=== PATIENT | male | born 1990 | race Caucasian/White ===

== ENCOUNTER 2023-03-06 11:10 | Emergency (ER) | payer BC, SELFPAY ==
[2023-03-06 11:24] VITALS: BP 136/85; PULSE 59; RESP 16; TEMP 36.2; O2SAT 100
--- NOTE | 2023-03-06 11:37 | CRLHL7_ITS ---
For Patients: As a result of the Century Cures Act, medical imaging exams and procedure reports are released immediately into your electronic medical record. You may view this report before your referring provider. If you have questions, please contact your health care provider. Indication: Left testicular pain. Technique: Ultrasound of the scrotum and contents. Sonographic medina-scale images were obtained with spectral and color Doppler waveform and spectral waveform analysis of the testicles. Comparison: 04/18/2019. Findings: Bother testicles are normal in size and echotexture. No masses. No suspicious calcifications. Arterial and venous color Doppler blood flow and spectral waveforms are present in both testicles. Epididymis: Unremarkable bilaterally. Normal blood flow. Other: Moderate-sized left hydrocele. No sign of varicocele. Scrotal wall is normal. Impression: Left-sided hydrocele present is of uncertain etiology. Remainder the exam is unremarkable. No sign of torsion or inflammation. Dictated by Tristin Benedict MD @ 03/06/2023 1:27:54 PM (Electronically Signed)
--- NOTE | 2023-03-06 13:23 | ED.MALEGU ---
HPI - Male Genitourinary General Time Seen by Provider: 13:23 Date Seen: 03/06/23 Chief complaint: Urogenital Problems, Male Stated complaint: Testicular pain Time Seen by Provider: 03/06/23 13:13 Source: patient and RN notes reviewed Mode of arrival: ambulatory Limitations: no limitations History of Present Illness HPI Narrative: Patient is a 32-year-old male coming in with left testicular pain. He admits it has probably been there for at least months, feels like it is worsening at times. There is always a low level discomfort, sometimes will feel best if he is sitting. He has not taken any Tylenol or ibuprofen today, does not feeling needs any. There has been no fevers, no urinary symptoms. No concern for STIs. There is no acute trauma to this testicle, does not feel any mass but seems like it hurts along the back side. 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 Denies any penile discharge. MD Complaint: testicle pain Related Data Previous Rx's Medication Instructions Recorded paroxetine HCl 20 mg tablet (Paxil) 20 mg PO QDAY 30 days #30 tabs 10/09/22 Allergies Allergy/AdvReac Type Severity Reaction Status Date / Time No Known Drug Allergies Allergy Verified 10/09/22 07:47 Review of Systems Narrative: As per HPI. 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 CV regular rate and rhythm no murmur abdomen is soft, no rebound or guarding no organomegaly. No inguinal adenopathy. Normal circumcised penis without any penile drainage or lesions. Testes are descended bilaterally. The testicles themselves are not tender. The left testicle is more tender superiorly along the aspect of the base of the cord and may have a little fullness feeling to it, maybe has a little bit of epididymal tenderness but is not significantly enlarged. Right testicle epididymis and spermatic cord seem normal. Documenting provider has reviewed patient's vital signs: yes Course Course Hospital Course: Reviewed with patient that I wonder more about hydrocele or varicocele, feels more like a hydrocele to me but is smaller. We need to await Radiology over read of this ultrasound, hopefully should be soon. He is not provide a urinalysis but given his physical examination, am not thinking that this is absolutely necessary. Reevaluation(s) Time of Reevaluation #1: 13:54 Reevaluation #1: Have reviewed ultrasound with patient and provided him a copy of report to take to his primary. This showing hydrocele. Did review this condition, benign nature and course of management. Ultimately he should see Urology. Vital Signs Vital signs: Initial Vital Signs Temperature 97.2 F L 03/06/23 11:24 Temperature Source Temporal Artery Scan 03/06/23 11:24 Pulse Rate 59 L 03/06/23 11:24 Pulse Rhythm Regular 03/06/23 11:24 Respiratory Rate 16 03/06/23 11:24 Blood Pressure 136/85 03/06/23 11:24 Blood Pressure Mean 102 03/06/23 11:24 Blood Pressure Position Sitting 03/06/23 11:24 Pulse Oximetry 100 03/06/23 11:24 Oxygen Delivery Method Room Air 03/06/23 11:24 Vital Signs Temperature 97.2 F L 03/06/23 11:24 Pulse Rate 59 L 03/06/23 11:24 Respiratory Rate 16 03/06/23 11:24 Blood Pressure 136/85 03/06/23 11:24 Pulse Oximetry 100 03/06/23 11:24 Oxygen Delivery Method Room Air 03/06/23 11:24 Temperature 97.2 F L 03/06/23 11:24 Pulse Rate 59 L 03/06/23 11:24 Respiratory Rate 16 03/06/23 11:24 Blood Pressure 136/85 03/06/23 11:24 Pulse Oximetry 100 03/06/23 11:24 Oxygen Delivery Method Room Air 03/06/23 11:24 MDM - Male Genitourinary Imaging Data US scrotum: Attestation: I have reviewed the pertinent imaging results. Radiologist's impression: Patient: BRIA GRAY Facility:?[facility] Patient ID:?[id number] Site Patient ID:?[id number]. Site :?1990 Study:?US Testicle -03/06/2023 12:20:36 PM Ordering Physician:?Meena Garcia Final Report: Indication: Left testicular pain. Technique: Ultrasound of the scrotum and contents. Sonographic medina-scale images were obtained with spectral and color Doppler waveform and spectral waveform analysis of the testicles. Comparison: 04/18/2019. Findings: Bother testicles are normal in size and echotexture. No masses. No suspicious calcifications. Arterial and venous color Doppler blood flow and spectral waveforms are present in both testicles. Epididymis: Unremarkable bilaterally. Normal blood flow. Other: Moderate-sized left hydrocele. No sign of varicocele. Scrotal wall is normal. Impression: Left-sided hydrocele present is of uncertain etiology. Remainder the exam is unremarkable. No sign of torsion or inflammation. Dictated by Tristin Benedict MD @ 03/06/2023 1:27:54 PM (Electronic Signature) Discharge Plan Discharge Clinical Impression: Hydrocele Patient Disposition: Home, Self-Care Condition: Stable Instructions: Hydrocele (ED) Additional Instructions: Supportive underwear, Tylenol and ibuprofen per bottle directions. Ultimately, need to be referred to Urology which you can get the referral through your primary care provider. This is a benign finding but can be symptomatic for you. Activity Level: Activity as Tolerated Prescriptions: No Action paroxetine HCl [Paxil] 20 mg tablet 20 mg PO QDAY 30 Days Qty: 30 1RF Follow Up/Referrals: Nallely Arreguin, ONLINE PUBLISHER, EMAIL CAMPAIGN MANAGER [Primary Care Provider] - Stand Alone Forms: [facility] Info Instructions
--- OUTSIDE RECORDS SUMMARY | 2023-03-06 13:39 | XMS_ITS | Continuity of Care Document ---
Author Name Unknown Organization [facility] Address [address] [place] [address] Phone Care Team Providers Care Apprentice Instrument Technician Name Role Phone Darrin Hayden MD Unavailable Unavailable Allergies, Adverse Reactions, Alerts Substance Reaction Status Criticality No Known Allergies Active No Inform ation Medications Medication Instructions Dosage Effective Dates (start - stop) Status Comments oxycodone 5 mg tablet take 1 - 2 Tablet by oral route every 6 - 8 hours as needed for pain 5 MG - No Longer Active Procedures Procedure Date Postop Followup Visit Re-do Lami/Discectomy, Lumbar HNP - PA D Re-do Lami/Discectomy, Lumbar HNP Office/Outpatient Visit,Est, Mod 2019 Office/Outpatient Visit,New, Mod 2019 Advance Directives Directive Yes / No Effective Date File Name No Information Encounters Encounter Description Practice Location Reason(s) For Visit Diagnoses Date Provider Providers Copied on Encounter [facility], [address], [place], [place], [id number] , [place] tel:[phone] [facility] Specialty [place] Encounter for other specified surgical aftercare 1 Catracho Clifford. [facility], [address], [address], [place], [place], [id number] , [place]. tel:[phone] Referring Provider: Chelsea Gee, [address], [address]. tel:[phone] [facility], [address], [facility] [place], [place], [id number] , [place] tel: [phone] [facility] No Information 0 Panvica Chato. [facility], [address], [address], [place], [place], [id number] , [place]. tel: [phone] [facility], [address], [facility] [place], [place], [id number] , [place] tel: [phone] [facility] No Information 0 Panvica Chato. [facility] [place], [address] [place] [address], [address], [place], [place], [address] , [place]. tel: [phone] [facility]: [facility] [address] [place], [address]. tel:[phone] [facility], [address], [place], [place], [id number] , [place] tel: [phone] [facility] No Information 0 Hayden Darrin. [facility] [place], [address] [place] [address], [address], [place], [place], [id number] , [place]. tel:[phone] Ref[facility]: [facility] [address] [place], [address]. [phone] Office/Outpat ient Visit,Est, Mod [facility], [address], [place], [place], [id number] , [place] tel: [phone] [facility] Other intervertebral disc displacement, lumbar regionRadiculop athy, lumbar region Nov- 0 Panvica Chato. [facility] [place], [address], [address], [place], [place], [id number] , [place]. [phone] Referring Provider: [facility] [address] [place], [address]. tel:[phone] Office/Outpat ient Visit,New, Mod [facility], [address], [place], [place], [id number] , [place] tel:[phone] [facility] Other intervertebral disc displacement, lumbar regionRadiculop athy, lumbar region 0 Shirin Reis. [facility], [address] [place] [address], [address], [place], [place], [id number] , [place]. [phone] Referring Provider: Chelsea Gee, [address], [address]. tel:[phone] Family History Family Member Type Diagnosis Age At Onset No Information Payers Payer name Insurance type Covered democrat ID Elis engel([place] [id number] [employer]/TPA [id number] Social History Type Description Quantity Date Captured Comments Alcohol Use Details Unknown Caffeine Use Details Unknown Tobacco Use Status Current non-smoker Smoking Status Never smoker Non-Smoking Tobacco Use Details : No Details Available : No Details Available Sex Male Vital Signs Date / Time: Height Weight BMI Pulse Rate Blood Pressure Temperature Respiratory Rate Body Surface Area Head Circumference Head Circ. Percentile Wt./Chuck. Percentile BMI percentile Pulse Ox Inhaled Ox 9:48 AM 66.50 in 72.121 kg (159.00 lbs) 25.2 8 kg/m eter (2) 98.60 F Chief Complaint And Reason For Visit No Information Reason For Referral Reason For Referral No Information History Of Present Illness Encounter Date Complaint History Of Prese nt Illness No Information Functional Status Date Functional Assessmen t No Information Instructions Date Instruction Additional Infor mation No Information Assessments Type Assessment Date No Information Patient Care Teams Name Effective Dates (start - stop) Status Members No Information
[2023-03-06 14:09] LABS: Appearance Urine Clear (Clear); Bilirubin Urine Negative (Negative); Blood Urine Negative (Negative); Color Urine Yellow (Yellow); Glucose Urine Negative (Negative); Ketones Urine Negative (Negative); Leukocyte Esterase Urine Negative (Negative); Nitrite Urine Negative (Negative); Protein Urine Negative (Negative); Urobilinogen Urine 0.2 (0.2-1.0)
[2023-03-06 14:37] LABS: RBC Urine 0-2 (0-2); WBC Urine 0-2 (0-5)
== END 2023-03-06 14:05 | disposition home or self-care (01) ==
PROVIDERS: Emergency Provider Family Medicine; PCP Nurse Practitioner Family
DX: N43.3 Hydrocele, unspecified (principal)
CPT/HCPCS: 76870; 81001; 93976; 99283; 99284

== ENCOUNTER 2023-07-09 04:32 | Emergency (ER) | payer BC, SELFPAY ==
[2023-07-09 04:38] VITALS: BP 160/94; PULSE 84; RESP 18; TEMP 36.8; O2SAT 99; BMI 25.1
--- NOTE | 2023-07-09 04:49 | PC.NURSE ---
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
--- NOTE | 2023-07-09 05:02 | CRLHL7_ITS ---
For Patients: As a result of the Century Cures Act, medical imaging exams and procedure reports are released immediately into your electronic medical record. You may view this report before your referring provider. If you have questions, please contact your health care provider. INDICATION: Chest pain COMPARISON: 03/02/2021 TECHNIQUE: PA and lateral 2 view chest radiograph. FINDINGS: The lungs are well expanded. No focal consolidations. No pulmonary edema. No pleural effusion. No pneumothorax. No pneumomediastinum. Normal cardiomediastinal silhouette. Bones: Normal for age. IMPRESSION: Lungs are clear. Normal chest radiographs. Dictated by Cailin Paz MD @ 07/09/2023 6:23:47 AM (Electronically Signed)
--- NOTE | 2023-07-09 05:25 | ED_ITS ---
HPI - General Adult General Chief complaint: Chest Pain Stated complaint: Chest pain Time Seen by Provider: 07/09/23 05:01 Source: patient Mode of arrival: ambulatory Limitations: no limitations History of Present Illness HPI narrative: 33-year-old male presents to the ED with chest pain for the past hour. Pain present upon awakening. He got up to go to the bathroom and realized his chest was achy. It is the anterior lower chest, near the insertion of the false ribs. No specific trauma or injury but did feel short of breath and had some tenderness yesterday at a wrestling meet when he was moving wrestling mats. For perspective, these are very heavy and cumbersome. No fever, no productive cough. No epigastric pain, emesis or nausea. He is having normal stools and normal appetite. No prior history of similar symptoms. No personal history of cardiac disease, DVT or PE. He has no family history of premature coronary artery disease or bleeding or blood clotting disorder. He does not smoke. He has no known history of hypertension or hyperlipidemia but admits he has not been to the physician in quite some time. He does have a history of anxiety and was prescribed Paxil for about a year. He reports that he stopped this a month ago cuts he had been feeling well and does not feel as though his symptoms are anxiety related. The chest pain is dull, achy and constant. On exam, a was a little worse for me when he leaned forward and took deep breaths. Did not try taking any aspirin or other interventions prior to coming to ED. Past medical history notable for anxiety. Only home med is Paxil. No allergies. Nonsmoker. ROS is notable for the chest symptoms as described above only, otherwise denies times 12 systems. 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 Social drinker 3/week Exercises three times per week - biking Smoking Status: Never smoker Do you use any of these nicotine containing products: None Second hand tobacco smoke exposure: No How often do you have a drink containing alcohol: monthly or less How many standard drinks containing alcohol do you have on a typical day: 1 or 2 How often do you have six or more drinks on one occasion: Never AUDIT-C Alcohol total score: 1 Non-prescribed substance use: denies use Little interest or pleasure in doing things: not at all Feeling down, depressed, or hopeless: more than half the days service: No Exam Const: Vital Signs, click to edit/add: Vital Signs - 24 hr 07/09/23 04:38 07/09/23 06:02 Temperature 98.3 F Pulse Rate [Pulse Oximeter] 84 56 L Respiratory Rate 18 16 Blood Pressure [Le ft Upper Arm] 160/94 H 119/58 L Pulse Oximetry 99 98 Oxygen Delivery Me thod Room Air Room Air Documenting provider has reviewed patient's vital signs: yes Common normals: no apparent distress, average body habitus and alert General appearance: well kempt HENMT: Common normals: normocephalic and head/scalp atraumatic Head and scalp: normocephalic and atraumatic Face and sinus: normal facial exam Mouth: oral and palatal mucosa normal Throat: posterior oropharynx normal Eye: Common normals: conjunctivae normal General eye: normal appearance of both eyes Conjunctiva: conjunctiva(e) normal Neck & C-Spine: Common normals: full ROM and no lymphadenopathy Chest: Common normals: inspection of chest normal and palpation of chest normal Resp: Common normals: normal respiratory effort, no use of accessory muscles and clear to auscultation bilaterally Effort & inspection: able to speak in complete sentences Auscultation: clear to auscultation bilaterally Cardio: Common normals: regular rate, regular rhythm, S1 normal heart sound, S2 normal heart sound and no murmurs Rate: regular rate Rhythm: regular rhythm Heart sounds: S1 normal and S2 normal GI: Common normals: Normal to inspection, nondistended, normoactive bowel sounds present, soft to palpation, non-tender, no hepatosplenomegaly and no masses Inspection: normal to inspection Palpation: soft and no hepatosplenomegaly Back & Pelvis: Common normals: thoracic and lumbar spine normal to inspection Extremity: Common normals: normal to inspection, full ROM and no pedal edema Neuro: Sensorium/orientation: alert Speech: speech normal Motor exam: no tremor noted and no movement abnormalities noted Psych: Common normals: thought process normal and speech normal Appearance: well kempt Attitude: engaged Activity/motor behavior: appropriate eye contact Speech: normal speech Thought process: normal thought process Insight: insight good Judgement: judgment good Skin: Common normals: no rashes or lesions noted General skin exam: no rashes or lesions noted Course Course ED Course: Lower anterior chest pain without any significant cardiac risk factors. Blood pressure is a little elevated. Recommend EKG, chest x-ray, basic labs and repea t troponin in 2 hours if initial is negative. Patient will be watched on quality assurance monitor final. No treatments recommended for initial management, await findings. Reevaluation(s) Time of Reevaluation #1: 06:36 Reevaluation #1: Counseled patient on initial results. Awaiting 2nd 2 hour troponin at 6:45 a.m. . Suspect this will be normal also. Suspect musculoskeletal etiology. Pressures have improved to the 1 teens over 70s. He is minimally symptomatic, no treatments have been given. Counseled patient that I would like for him to keep a symptom diary, Tylenol and ibuprofen as needed for pain. Alarm symptoms reviewed that would warrant repeat ED presentation. If he continues to have episodes, would recommend he see his primary care provider for a cardiac stress test. He verbalizes understanding and agreement of plan. Will be discharged home if 2nd troponin is negative. Time of Reevaluation #2: 06:53 Reevaluation #2: Second troponin also negative. Discharge instructions Vital Signs Vital signs: Initial Vital Signs Temperature 98.3 F 07/09/23 04:38 Temperature Source Temporal Artery Scan 07/09/23 04:38 Pulse Rate 84 07/09/23 04:38 Pulse Rhythm Regular 07/09/23 04:38 Respiratory Rate 18 07/09/23 04:38 Blood Pressure 160/94 H 07/09/23 04:38 Blood Pressure Mean 116 H 07/09/23 04:38 Pulse Oximetry 99 07/09/23 04:38 Oxygen Delivery Method Room Air 07/09/23 04:38 Vital Signs Temperature 98.3 F 07/09/23 04:38 Pulse Rate 84 07/09/23 04:38 Respiratory Rate 18 07/09/23 04:38 Blood Pressure 160/94 H 07/09/23 04:38 Pulse Oximetry 99 07/09/23 04:38 Oxygen Delivery Method Room Air 07/09/23 04:38 Temperature 98.3 F 07/09/23 04:38 Pulse Rate 56 L 07/09/23 06:02 Respiratory Rate 16 07/09/23 06:02 Blood Pressure 119/58 L 07/09/23 06:02 Pulse Oximetry 98 07/09/23 06:02 Oxygen Delivery Method Room Air 07/09/23 06:02 Medical Decision Making Lab Data Lab results reviewed: Yes I reviewed the patient's lab results Lab results narrative: All reassuring. Labs: Lab Results 07/09/23 07/09/23 Range/Units 04:45 05:02 WBC 6.18 (4.50-11.00) K/uL RBC 5.39 (4.30-5.90) m/uL Hgb 16.2 (13.5-17.5) gm/dL Hct 47.6 (37.0-53.0) % MCV 88 (80-100) fL MCH 30 (26-34) pg MCHC 34 (32-36) gm/dL RDW Coeff of Jennifer 11.8 (11.5-15.5) % Plt Count 208 (140-440) K/uL Neut % (Auto) 44.2 (42.0-72.0) % Lymph % (Auto) 45.5 H (20-44) % [place] % (Auto) 8.4 (0.0-11.0) % Eos % (Auto) 1.5 (0.0-7.0) % Baso % (Auto) 0.2 (0.0-3.0) % Neut # (Auto) 2.74 (1.7-7.0) K/uL Lymph # (Auto) 2.80 (0.90-2.90) K/uL [place] # (Auto) 0.50 (0.00-0.90) K/UL Eos # (Auto) 0.09 (0.00-0.50) K/uL Baso # (Auto) 0.01 (0.00-0.30) K/uL Abs Immat Gran (auto) 0.01 (0.00-0.30) K/uL Imm/Tot Granulo (auto) 0.2 % D-Dimer Quant (PE/DVT) < 0.27 (0.00-0.50) ug/ml Sodium 141 (135-149) mmol/L Potassium 3.9 (3.6-5.1) mmol/L Chloride 102 (96-114) mmol/L Carbon Dioxide 29 (20-32) mmol/L Anion Gap 10 (7-15) mEq/L BUN 20 (5-24) mg/dL Creatinine 1.0 (0.5-1.5) mg/dL Estimated Creat Clear 97.31 Estimated GFR 101 ml/min Glucose 103 (60-115) mg/dL Calcium 9.9 (8.4-10.6) mg/dL Total Bilirubin 1.2 (0.1-1.5) mg/dL AST 29 (12-35) U/L ALT 29 (4-50) U/L Alkaline Phosphatase 72 (40-150) U/L Troponin I < 0.01 L (0.01-0.04) ng/mL C-Reactive Protein 0.5 (0.5-1.0) mg/dL NT-Pro-B Natriuret Pep < 20 pg/mL Total Protein 8.1 (6.0-8.3) g/dL Albumin 5.2 H (3.3-5.0) g/dL POC Troponin I 0.00 L (0.01-0.04) ng/ml Imaging Data Chest x-ray: Attestation: I have reviewed the pertinent imaging results. My impression: Normal chest x-ray Radiologist's impression: IMPRESSION: Lungs are clear. Normal chest radiographs. Dictated by Cailin Paz MD @ 07/09/2023 6:23:47 AM ECG Data Attestation: I personally reviewed and interpreted this ECG as follows: Prior ECG tracings: not available for review Interpretation: Normal sinus rhythm, rate of 71. Normal axis and intervals. No ischemia, no significant ST or T-wave abnormalities. Discharge Plan Discharge Clinical Impression: Non-cardiac chest pain Patient Disposition: Home, Self-Care Condition: Stable Instructions: Chest Wall Pain (ED) Additional Instructions: As we discussed, I suspect that your pain is either from a pulled diaphragm muscle or strained cartilage of your lower ribs. This tends to improve over 7- 10 days. It is okay to use Tylenol 1000 mg every 6 hours and or ibuprofen 600 mg every 6 hours as needed for pain. You have no restrictions on your activities. But no that heavy lifting and or straining may worsen your pain. You have severe shortness of breath, heart palpitations or feel your symptoms are worsening, please come back to the emergency department. If her symptoms remain mild, keep a symptom diary. If they are persisting beyond the next 10 days, make a follow-up appointment with her primary care provider to further discuss and consider doing a cardiac stress test. Activity Level: No Restrictions Discharge Diet: Regular Prescriptions: No Action No Known Home Medications Follow Up/Referrals: Nallely Arreguin APRN, PYROTECHNICS PRESS TENDER [Primary Care Provider] - Stand Alone Forms: [email or web address] Info Instructions
[2023-07-09 05:46] LABS: Basophils Absolute Auto 0.01 K/uL (0.00-0.30); Basophils Percent Auto 0.2 % (0.0-3.0); Eosinophils Absolute Auto 0.09 K/uL (0.00-0.50); Eosinophils Percent Auto 1.5 % (0.0-7.0); Hematocrit 47.6 % (37.0-53.0); Hemoglobin* 16.2 gm/dL (13.5-17.5); Immature Granulocytes Abs Auto 0.01 K/uL (0.00-0.30); Immature Granulocytes Pct Auto 0.2 %; Lymphocytes Percent Auto 45.5 % (20-44); Mean Corpuscular HGB Conc 34 gm/dL (32-36); Mean Corpuscular Hemoglobin 30 pg (26-34); Mean Corpuscular Volume 88 fL (80-100); Monocytes Percent Auto 8.4 % (0.0-11.0); Neutrophils Absolute Auto 2.74 K/uL (1.7-7.0); Neutrophils Percent Auto 44.2 % (42.0-72.0); Platelet Count* 208 K/uL (140-440); RDW Coefficient of Variation % 11.8 % (11.5-15.5); Red Blood Count 5.39 m/uL (4.30-5.90); White Blood Count* 6.18 K/uL (4.50-11.00)
--- OUTSIDE RECORDS SUMMARY | 2023-07-09 05:48 | XMS_ITS | Continuity of Care Document ---
Author Name Unknown Organization [facility] Address [address] [place] [address] Phone Care Team Providers Care Vat Operator Name Role Phone Darrin Hayden MD Unavailable [...] Copied on Encounter [facility], [address], [place], [place], [id number] , [place] tel:[phone] [facility] [place] Encounter for other specified surgical aftercare 1 Catracho Clifford. [facility], [address], [address], [place], [place], [id number] , [place]. tel:[phone] Referring Provider: Chelsea Gee, [address], [address]. tel:[phone] [facility], [address], [facility], [place], [id number] , [place] tel: [phone] [facility] No Information 0 Panvica Chato. [facility], [address], [address], [place], [place], [id number] , [place]. tel: [phone] [facility], [address], [facility], [place], [id number] , [place] tel: [phone] [facility] No Information 0 Panvica Chato. [facility] [place], [address] [place] [address], [address], [place], [place], [id number] , [place]. tel: [phone] [facility]: [facility] [address] [place], [address]. tel:[phone] [facility], [address], [place], [place], [id number] , [place] tel: [phone] [facility] No Information 0 Hayden Darrin. [facility] [place], [address] [place] [address], [address], [place], [place], [id number] , [place]. tel:[phone] [facility]: [facility] [address] [place], [address]. [phone] Office/Outpat ient Visit,Est, Mod [facility], [address], [place], [place], [id number] , [place] tel: [phone] [facility] Other intervertebral disc displacement, lumbar regionRadiculop athy, lumbar region Nov- 0 Panvica Chato. [facility] [place], [address], [address], [place], [place], [address] , [place]. [phone] Ref[facility]: [facility] [address] [place], [address]. tel:[phone] Office/Outpat ient Visit,New, Mod [facility], [address], [place], [place], [id number] , [place] tel:[phone] [facility] Other intervertebral disc displacement, lumbar regionRadiculop athy, lumbar region 0 Shirin Reis. [facility], [address] [place] [address], [address], [place], [place], [id number] , [place]. [phone] Referring Provider: Chelsea Gee, [address], [address]. tel:[phone] Family History Family Member Type Diagnosis Age At Onset No Information Payers Payer name Insurance type Covered democrat ID Elis engel([place]) [place] [id number] CCS/TPA [id number] Social History Type Description Quantity Date Captured [...]
[2023-07-09 05:52] LABS: Slide Review Reflex No
[2023-07-09 06:01] LABS: Albumin* 5.2 g/dL (3.3-5.0); Chloride* 102 mmol/L (96-114); Sodium* 141 mmol/L (135-149)
[2023-07-09 06:02] VITALS: BP 119/58; PULSE 56; RESP 16; O2SAT 98
[2023-07-09 06:02] LABS: Potassium* 3.9 mmol/L (3.6-5.1)
[2023-07-09 06:03] LABS: Est. Creatinine Clearance* 97.31; Estimated Glomerular Filt Rate 101 ml/min
[2023-07-09 06:04] LABS: Alkaline Phosphatase* 72 U/L (40-150); Anion Gap 10 mEq/L (7-15); Aspartate Amino Transferase* 29 U/L (12-35); Bilirubin Total* 1.2 mg/dL (0.1-1.5); Carbon Dioxide* 29 mmol/L (20-32); Total Protein* 8.1 g/dL (6.0-8.3)
[2023-07-09 06:05] LABS: Alanine Aminotransferase* 29 U/L (4-50); Blood Urea Nitrogen* 20 mg/dL (5-24); Calcium* 9.9 mg/dL (8.4-10.6); Glucose* 103 mg/dL (60-115)
[2023-07-09 06:06] LABS: D Dimer Quantitative* < 0.27 ug/ml (0.00-0.50)
[2023-07-09 06:07] LABS: C Reactive Protein* 0.5 mg/dL (0.5-1.0)
[2023-07-09 06:13] LABS: NT Pro B Type NatriureticPept* < 20 pg/mL
[2023-07-09 06:16] LABS: Troponin I* < 0.01 ng/mL (0.01-0.04)
[2023-07-09 07:02] VITALS: BP 118/72; PULSE 50; RESP 16; TEMP 36.7; O2SAT 98
== END 2023-07-09 07:02 | disposition home or self-care (01) ==
PROVIDERS: Emergency Provider Family Medicine; PCP Nurse Practitioner Family
DX: R07.89 Other chest pain (principal)
CPT/HCPCS: 36415; 71046; 80053; 83880; 84484; 85025; 85379; 86140; 99284

== ENCOUNTER 2023-07-17 15:48 | Outpatient (CLI) | payer BC, SELFPAY | END 2023-07-17 15:49 | disposition home or self-care (01) | PROVIDERS: PCP Nurse Practitioner Family; Visit Provider Nurse Practitioner Family | DX: R07.89 Other chest pain (principal); Z13.220 Encounter for screening for lipoid disorders | CPT/HCPCS: 80061; 84484; 85025; 85651; 86140 ==

== ENCOUNTER 2023-07-27 05:37 | Emergency (ER) | payer BC, SELFPAY ==
[2023-07-27] VITALS (11 sets, daily range): BP systolic 136–152; BP diastolic 87–99; PULSE 46–61; RESP 16–18; TEMP 36.7; O2SAT 96–98; BMI 25.1
--- NOTE | 2023-07-27 05:57 | CRLHL7_ITS ---
For Patients: As a result of the Century Cures Act, medical imaging exams and procedure reports are released immediately into your electronic medical record. You may view this report before your referring provider. If you have questions, please contact your health care provider. INDICATION: Head injury. Right-sided weakness and neck pain. TECHNIQUE: CT head without contrast. COMPARISON: None. FINDINGS: CSF spaces: Within normal limits for age. Brain parenchyma and extra-axial spaces: The medina-white differentiation is normal. No sign of mass, hemorrhage, or midline shift. No extra-axial fluid collection. Skull base and calvarium: Opacified left maxillary sinus. The visualized orbits are grossly unremarkable. No skull fractures. IMPRESSION: Unremarkable head CT except for opacification of the left maxillary sinus. No signs of acute injury. Please note that all CT scans at this facility use dose modulation, iterative reconstruction, and/or weight-based dosing when appropriate to reduce radiation dose to as low as reasonably achievable. Dictated by Tristin Benedict MD @ 07/27/2023 6:44:12 AM (Electronically Signed)
--- NOTE | 2023-07-27 05:57 | CRLHL7_ITS ---
For Patients: As a result of the Century Cures Act, medical imaging exams and procedure reports are released immediately into your electronic medical record. You may view this report before your referring provider. If you have questions, please contact your health care provider. INDICATION: Trauma, fall with neck pain. TECHNIQUE: CT cervical spine without contrast. COMPARISON: None. FINDINGS: Vertebrae: Alignment is normal. There are no fractures or suspicious bony lesions. Discs and facet joints: Disc spaces and facets are within normal limits. Extraspinal findings: Prevertebral soft tissues, visualized airway, and visualized lungs are unremarkable. IMPRESSION: Unremarkable cervical spine CT. Please note that all CT scans at this facility use dose modulation, iterative reconstruction, and/or weight-based dosing when appropriate to reduce radiation dose to as low as reasonably achievable. Dictated by Tristin Benedict MD @ 07/27/2023 6:49:30 AM (Electronically Signed)
--- NOTE | 2023-07-27 06:00 | ED.GENADULT ---
HPI - General Adult General Chief complaint: Fall/Minor Trauma Stated complaint: possible concussion Time Seen by Provider: 07/27/23 05:45 Source: patient and family History of Present Illness HPI narrative: 33-year-old male fell down the stairs in his home 1 hour prior to arrival. heard the fall and attended to him quickly. This was a very large flight of stairs, could have been up to 20 steps. Patient remembers falling but is quite fuzzy on the details. reports that she heard the fall, that he fell forward going down the stairs. He seemed to land on all fours but she cannot be sure and he crawled a few feet into the next room. He is complaining of headache, neck pain and some paresthesias on his right side. He is not answering questions fully appropriately per his . He is placed in a C-collar right away and the TTA is called. He does not take any anticoagulants. He has not taken any medication for pain. Pain worse with movement, accompanied by some photophobia. No fevers or recent injury, no intoxication or alcohol use. This was a typical morning for them, getting up and getting ready for work. No prior history of severe head injuries. Past medical history benign, no major long-term health problems. No allergies, no long-term medications, nonsmoker. ROS notable for the neurological and musculoskeletal symptoms as above on initial survey, otherwise denies times 12 systems. 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 Social drinker 3/week Exercises three times per week - biking Smoking Status: Never smoker Do you use any of these nicotine containing products: None Second hand tobacco smoke exposure: No How often do you have a drink containing alcohol: monthly or less How many standard drinks containing alcohol do you have on a typical day: 1 or 2 How often do you have six or more drinks on one occasion: Never AUDIT-C Alcohol total score: 1 Non-prescribed substance use: denies use Little interest or pleasure in doing things: not at all Feeling down, depressed, or hopeless: several days service: No Exam Const: Vital Signs, click to edit/add: Vital Signs - 24 hr 07/27/23 05:54 07/27/23 06:01 07/27/23 06:22 Temperature 98.0 F Pulse Rate 61 53 L Pulse Rate [Pulse Oximeter] 57 L Respiratory Rate 16 16 16 Blood Pressure 149/94 H 136/93 H Blood Pressure [Ri ght Upper Arm] 149/94 H Pulse Oximetry 98 96 96 Oxygen Delivery Me thod Room Air 07/27/23 06:32 07/27/23 06:42 07/27/23 06:52 Temperature Pulse Rate 49 L 57 L Pulse Rate [Pulse Oximeter] Respiratory Rate 18 16 Blood Pressure 140/87 H 137/90 H 150/95 H Blood Pressure [Ri ght Upper Arm] Pulse Oximetry 96 97 Oxygen Delivery Me thod 07/27/23 07:00 07/27/23 07:02 07/27/23 07:12 Temperature Pulse Rate 57 L 48 L 46 L Pulse Rate [Pulse Oximeter] Respiratory Rate Blood Pressure 138/91 H 136/95 H Blood Pressure [Ri ght Upper Arm] Pulse Oximetry 97 97 97 Oxygen Delivery Me thod 07/27/23 07:15 07/27/23 07:22 Temperature Pulse Rate 59 L 51 L Pulse Rate [Pulse Oximeter] Respiratory Rate Blood Pressure 152/99 H Blood Pressure [Ri ght Upper Arm] Pulse Oximetry 97 96 Oxygen Delivery Me thod Documenting provider has reviewed patient's vital signs: yes General appearance: cooperative and well kempt Other: Photophobic, makes exam just a little bit difficult. He can answer simple questions appropriately, is not repeating himself. Certainly does seem to have a short period of time of blackout from his memory during the fall. No slurring of the speech. HENMT: Common normals: normocephalic, head/scalp atraumatic, TM's normal bilaterally, nasal mucous membranes and turbinates normal, oropharynx normal and dentition normal Head and scalp: normocephalic and atraumatic Face and sinus: normal facial exam Nose: nasal mucous membranes and turbinates normal Tympanic membrane: TM's normal bilaterally Throat: posterior oropharynx normal Other: Angioma birthmark on the left ear, not blood. Eye: Common normals: PERRL, EOMs intact bilaterally and conjunctivae normal General eye: normal appearance of both eyes Conjunctiva: conjunctiva(e) normal Pupil: PERRL Neck & C-Spine: Other: Cervical spine tender to palpation from about C5 through C7. This is not accompanied by obvious deformity or step-off. C-collar placed. Chest: Common normals: inspection of chest normal Other: No crepitus to ribs or collar bones. Nontender Resp: Common normals: normal respiratory effort and clear to auscultation bilaterally Effort & inspection: able to speak in complete sentences and symmetric chest movement Auscultation: clear to auscultation bilaterally Cardio: Common normals: regular rate, regular rhythm, S1 normal heart sound, S2 normal heart sound and no murmurs Rate: regular rate Rhythm: regular rhythm Heart sounds: S1 normal and S2 normal GI: Common normals: Normal to inspection, nondistended, normoactive bowel sounds present, soft to palpation, non-tender, no hepatosplenomegaly and no masses Palpation: soft and no hepatosplenomegaly Back & Pelvis: Common normals: thoracic and lumbar spine normal to inspection and no thoracic nor lumbar tenderness Extremity: Common normals: normal to inspection and normal capillary refill Other: Joints without swelling or deformity. Neuro: Other: Mild paresthesias to palpation of dorsal surface of right foot and anterior lower leg. This is slightly weaker than left side to dorsiflexion and plantar flexion as well. Retail Event Assistant strength is very slightly reduced on the right as compared to the left but flexion and extension at the upper arms seem symmetric. Psych: Common normals: speech normal Appearance: well kempt Attitude: engaged Speech: normal speech Skin: Common normals: no rashes or lesions noted General skin exam: no rashes or lesions noted Course Course ED Course: Neck pain and some photophobia, right-sided weakness following a fall down the stairs, concerning for significant head and neck injury. Trauma team activation is called, patient is placed in protective cervical spine collar. Urgent CT of the head and neck with basic labs ordered. Nursing informed of my concerns. Awaiting imaging. Reevaluation(s) Time of Reevaluation #1: 07:11 Reevaluation #1: Inform patient of negative CT results and normal blood work. Those are reassuring. Secondary survey showing that his right side is neurologically normal, he just has myofascial tenderness in the right hamstring area and the lumbar and cervical spines. I still do not detect any point bony or midline tenderness anywhere on the spine. The knee itself is without effusion, no point bony tenderness has some posterior tenderness and especially tenderness at the insertion of the medial head of the hamstring. There is no significant bruising or palpable defect or loss of strength. He can answer questions appropriately without signs of confusion now. agrees that he does seem neurologically back to normal. He was given Tylenol and oxycodone for the headache which is helping somewhat. We discussed work restrictions. Strict rest for the next 48 hours, very light duty hours 48-72. Work note is given to reflect this. He may be ready to go back to work in 4 days but I am not sure. He should see how he is feeling on Sunday and then make an appointment on Sunday with his primary care provider if his symptoms have not improved markedly. Any signs of headache, dizziness, persistent nausea, vision changes or photophobia would be indications that he is not ready to return to work. Counseled on use of Tylenol and ibuprofen. Given a supply of 4 tablets of oxycodone for any severe pain. Counseled on alarm symptoms extensively and home management. He and his verbalized understanding and agreement of plan. Vital Signs Vital signs: Initial Vital Signs Temperature 98.0 F 07/27/23 05:54 Temperature Source Temporal Artery Scan 07/27/23 05:54 Pulse Rate 57 L 07/27/23 05:54 Respiratory Rate 16 07/27/23 05:54 Blood Pressure 149/94 H 07/27/23 05:54 Blood Pressure Mean 112 H 07/27/23 05:54 Blood Pressure Position Supine 07/27/23 05:54 Pulse Oximetry 98 07/27/23 05:54 Oxygen Delivery Method Room Air 07/27/23 05:54 Vital Signs Temperature 98.0 F 07/27/23 05:54 Pulse Rate 57 L 07/27/23 05:54 Respiratory Rate 16 07/27/23 05:54 Blood Pressure 149/94 H 07/27/23 05:54 Pulse Oximetry 98 07/27/23 05:54 Oxygen Delivery Method Room Air 07/27/23 05:54 Temperature 98.0 F 07/27/23 05:54 Pulse Rate 51 L 07/27/23 07:22 Respiratory Rate 16 07/27/23 06:42 Blood Pressure 152/99 H 07/27/23 07:22 Pulse Oximetry 96 07/27/23 07:22 Oxygen Delivery Method Room Air 07/27/23 05:54 Medications Administered Medications: Discontinued Medications Generic Name Dose Route Start Last Admin Trade Name Freq PRN Reason Stop Dose Admin Acetaminophen 1,000 mg 07/27/23 06:44 07/27/23 06:50 Acetaminophen 500 Mg Tablet PO 07/27/23 06:45 1,000 mg ONCE ONE Administration Oxycodone HCl 5 mg 07/27/23 06:44 07/27/23 06:51 Oxycodone 5 Mg Tablet PO 07/27/23 06:45 5 mg ONCE ONE Administration Medical Decision Making Lab Data Lab results reviewed: Yes I reviewed the patient's lab results Lab results narrative: Labs all reassuring, as expected. Labs: Lab Results 07/27/23 Range/Units 05:52 WBC 6.26 (4.50-11.00) K/uL RBC 5.14 (4.30-5.90) m/uL Hgb 15.4 (13.5-17.5) gm/dL Hct 44.8 (37.0-53.0) % MCV 87 (80-100) fL MCH 30 (26-34) pg MCHC 34 (32-36) gm/dL RDW Coeff of Jennifer 11.7 (11.5-15.5) % Plt Count 204 (140-440) K/uL Neut % (Auto) 55.6 (42.0-72.0) % Lymph % (Auto) 34.3 (20-44) % [place] % (Auto) 8.5 (0.0-11.0) % Eos % (Auto) 0.8 (0.0-7.0) % Baso % (Auto) 0.2 (0.0-3.0) % Neut # (Auto) 3.48 (1.7-7.0) K/uL Lymph # (Auto) 2.15 (0.90-2.90) K/uL [place] # (Auto) 0.50 (0.00-0.90) K/UL Eos # (Auto) 0.05 (0.00-0.50) K/uL Baso # (Auto) 0.01 (0.00-0.30) K/uL Abs Immat Gran (auto) 0.04 (0.00-0.30) K/uL Imm/Tot Granulo (auto) 0.6 % Sodium 140 (135-149) mmol/L Potassium 4.0 (3.6-5.1) mmol/L Chloride 104 (96-114) mmol/L Carbon Dioxide 25 (20-32) mmol/L Anion Gap 11 (7-15) mEq/L BUN 15 (5-24) mg/dL Creatinine 0.9 (0.5-1.5) mg/dL Estimated Creat Clear 108.13 Estimated GFR 115 ml/min Glucose 97 (60-115) mg/dL Calcium 9.3 (8.4-10.6) mg/dL C-Reactive Protein < 0.5 L (0.5-1.0) mg/dL Ethyl Alcohol < 0.01 L (0.01-0.03) % Imaging Data CT scan - head: Attestation: I have reviewed the pertinent imaging results. My impression: Normal head CT. Radiologist's impression: IMPRESSION: Unremarkable head CT except for opacification of the left maxillary sinus. No signs of acute injury. CT cervical spine: Attestation: I have reviewed the pertinent imaging results. My impression: Normal cervical spine CT Radiologist's impression: IMPRESSION: Unremarkable cervical spine CT. Discharge Plan Discharge Clinical Impression: Hamstring strain, Acute cervical myofascial strain, Concussion, Acute lumbar myofascial strain Patient Disposition: Home w/ Parent or Adult Condition: Stable Instructions: Concussion (ED) Additional Instructions: As we discussed, there thankfully no signs of skull fracture, bleeding on the brain or cervical spine injury. You certainly do have symptoms of at least a moderate possibly severe concussion. It is very important that you rest today and tomorrow. Minimal light duty on Sunday only. Work note is given until Sunday. Please note that you really may not be able to return to work yet on Sunday based on this injury. He would be ready to return to work if your headache has resolved, you are no longer having dizziness, light sensitivity, off balance feelings or severe fatigue. I would expect all of those symptoms for the next 48 hours. It is okay to use Tylenol 1000 mg every 6 hours and or ibuprofen 600 mg every 6 hours for headache and discomfort. I would not expect seizures, neurological changes, persistent vomiting. Those would all be signs that you need to come back to the emergency department. As we discussed, you certainly have a pulled hamstring on the right side, muscular strains of your neck and lower back but you may have other injuries that will become more pronounced within the next 12 hours. Any severe new injuries discovered would warrant repeat evaluation. I have also given you a small supply of oxycodone to use if the pain is severe. Please try to max out your Tylenol and ibuprofen 1st and use these sparingly, you may not need them at all. It is okay to sleep, you do not need to be purposefully kept awake. It is okay to use Benadryl and or melatonin to help you sleep. It can be common to have sleep disturbances for a few weeks after head injuries, consider using melatonin if these occur. Make an appointment to be re-evaluated on Sunday if your symptoms have not markedly improved to discuss physical therapy and further follow-up plans. Activity Level: Light activity Discharge Diet: Regular Prescriptions: No Action No Known Home Medications Follow Up/Referrals: Nallely Arreguin, DIRECTOR OF COLLECTIONS, THERAPEUTIC RECREATION ASSISTANT [Primary Care Provider] - Stand Alone Forms: AGLOGIC Info Instructions
--- OUTSIDE RECORDS SUMMARY | 2023-07-27 06:04 | XMS_ITS | Referral Summary ---
Author Name Unknown Organization [facility] Address [address] [place] [address] Care Team Providers Care Black Top Roller Name Role Phone Elsewhere, Pcp Primary Care Provider Unavailabl e Source Comments Patient records contain information from all sites at [facility]. For routine questions regarding patient records, call [phone] during business hours, M-F 8:00 AM - 5:00 PM Central Time. Record requests for emergency care only can be directed to [phone] at any time.[facility] Allergies No known active allergies Medications No known medications Immunizations Name Administration Dates Next Due HepA Adult 02/07/2008 IPV 04/06/2006 Influenza, Unspecified 06/17/2014,05/15/2007 MCV4 (Menactra) 02/03/2008 Td (Adult), adsorbed 12/14/2001 Tdap 06/17/2014 Social History Tobacco Use Types Packs/Day Years Used Date Smoking Tobacco: Never Smokeless Tobacco: Former Tobacco Cessation:Counseling Given: Not Answered Overall Financial Resource Strain (CARDIA) Answe r Date Recorded How hard is it for you to pa y for the very basics like food, housing, medical care, and heating? Not hard at all 04/20/2023 PHQ-2 Answer Date Recorded PHQ-2 Score 0 03/08/2019 Exercise Vital Sign Answer Date Recorde d On average, how many days pe r week do you engage in moderate to strenuous exercise (like a brisk walk)? 5 days 04/20/2023 On average, how many minutes do you engage in exercise at this level? 90 min 04/20/2023 Hunger Vital Sign Answer Date Recorded Within the past 12 months, y ou worried that your food would run out before you got the money to buy more. Never true 04/20/20 Within the past 12 months, t he food you bought just didn't last and you didn't have money to get more. Never true 04/20/2023 PRAPARE - Transportation Answer Date Re corded In the past 12 months, has l ack of transportation kept you from medical appointments or from getting medications? No 04/02 In the past 12 months, has l ack of transportation kept you from meetings, work, or from getting things needed for daily living? No 04/20/2023 Nutrition Answer Date Recorded Nutrition: EVOO Fat Source Unknown 04/20 On average, how many serving s of fruits and vegetables do you eat per day (serving size is equal to 1 cup or approximately the size of a tennis ball)? 3-5 04/20/2023 Dental Answer Date Recorded Dental: Regular Dentist Yes 04/20/20 Employment Answer Date Recorded Employment status Employed and actively working without restrictions 04/20/2023 Housing Stability Answer Date Recorded What is your living situation today? I have a [facility] place to live 04/20/2023 Sex and Gender Information Value Date Recorded Sex Assigned at Male 04/20/2023 8:14 PM CDT Gender Identity Male 04/20/2023 8:14 PM CDT Sexual Orientation Straight 04/20/2023 8: 14 PM CDT Last Filed Vital Signs Vital Sign Reading Time Taken Comments Blood Pressure 138/90 11/09/2021 6:53 AM CDT Pulse 63 11/09/2021 6:53 AM CDT Temperature 36.4 ??C (97.5 ??F) 11/09/2021 6:53 AM CD T Respiratory Rate 16 11/09/2021 6:53 AM CDT Oxygen Saturation 97% 11/09/2021 6:53 AM CDT Inhaled Oxygen Concentration - - Weight 72.8 kg (160 lb 7.9 oz) 11/09/2021 6:52 A M CDT Height 172 cm (5' 7.72) 07/21/2016 10:33 AM PHYSICAL THERAPIST CLINIC DIRECTOR Body Mass Index 24.61 07/21/2016 10:33 AM PHYSICAL THERAPIST CLINIC DIRECTOR Plan of Treatment Not on file Care Teams Black Top Roller Relationship Specialty Start Date End Date Elsewhere, Pcp PCP - General 11/30/21
--- OUTSIDE RECORDS SUMMARY | 2023-07-27 06:04 | XMS_ITS ---
Author Name Unknown Organization [facility] Address [address] [place] [address] Care Team Providers Care Medical Affairs Leader Name Role Phone Unavailable Unavailable Unavailable Surgery Details Not on file Complications Check Surgery Details section. Procedure Estimated Blood Loss Check Surgery Details section. Procedure Findings Check Surgery Details section. Procedure Specimens Taken Check Surgery Details section.
--- OUTSIDE RECORDS SUMMARY | 2023-07-27 06:04 | XMS_ITS | Clinical Summary ---
Author Name Unknown Organization [facility] Address [address] [place] [address] Care Team Providers Care Ctrs Name Role Phone Elsewhere, Pcp Primary Care Provider Unavailabl e Source Comments Patient records contain information from all sites at [facility]. For routine questions regarding patient records, call [phone] during business hours, M-F 8:00 AM - 5:00 PM Central Time. Record requests for emergency care only can be directed to [phone] at any time.[facility] Allergies No known active allergies Medications No [...] your living situation today? I have a [facility] place to live 04/20/2023 Sex and Gender [...] 172 cm (5' 7.72) 07/21/2016 10:33 AM REAL ESTATE OPERATIONS MANAGER Body Mass Index 24.61 07/21/2016 10:33 AM REAL ESTATE OPERATIONS MANAGER Plan of Treatment Health Maintenance Due Date Last Done Comments HIV Screening 1989 Hepatitis C Screening 1989 COVID-19 Vaccine (#1) 1989 Hepatitis A Vaccines (2 of 2 - Risk 2-dose series) 08/09/2008 02/07/2008 Influenza Vaccine (#1) 2023 4, 05/15/2007 Depression Screening (Annual PHQ-2) 07/02/2023 DTaP,Tdap,and Td Vaccines (4 - Td or Tdap) 06/17/2024 06/17/2014, 02/26/2002, 12/14/2001 Hepatitis B Vaccines Completed 02/26/2002, 10/17/2001, 12/11/2000 HPV Vaccines Aged Out No longer eligi ble based on patient's age to complete this topic Pneumococcal vaccine (0-64 years) Aged Out No longer eligible b ased on patient's age to complete this topic Care Teams Ctrs Relationship Specialty Start Date End Date Elsewhere, Pcp PCP - General 11/30/21
--- OUTSIDE RECORDS SUMMARY | 2023-07-27 06:05 | XMS_ITS | Continuity of Care Document ---
Author Name Unknown Organization [facility] Address [address] [place] [address] Phone Care Team Providers Care In Tube Conversion Technician Name Role Phone Darrin Hayden MD [...] Copied on Encounter [facility], [address], [place], [place], [id number] , [place] tel:[phone] [facility] [place] Encounter for other specified surgical aftercare 1 Catracho Clifford. [facility], [address], [address], [place], [place], [id number] , [place]. tel:[phone] Referring Provider: Chelsea Gee, [address], [address]. tel:[phone] [facility], [address], [facility] [place], [place], [id number] , [place] tel: [phone] [facility] No Information 0 Panvica Chato. [facility], [address], [address], [place], [place], [id number] , [place]. tel: [phone] [facility], [address], [facility] [place], [place], [id number] , [place] tel: [phone] [facility] No Information 0 Panvica Chato. [facility] [place], [address] [place] [address], [address], [place], [place], [id number] , [place]. tel: [phone] Referring [facility]: [facility] [address] [place], [address]. tel:[phone] [facility], [address], [place], [place], [id number] , [place] tel: [phone] [facility] No Information 0 Hayden Darrin. [facility] [place], [address] [place] [address], [address], [place], [place], [id number] , [place]. tel:[phone] Referring Provider: [facility] [address] [place], [address]. [phone] Office/Outpat ient Visit,Est, Mod [facility], [address], [place], [place], [id number] , [place] tel: [phone] [facility] Other intervertebral disc displacement, lumbar regionRadiculop athy, lumbar region Nov- 0 Panvica Chato. [facility] [place], [address], [address], [place], [place], [id number] , [place]. [phone] Referring Provider: [facility] [address] [place], [address]. tel:[phone] Office/Outpat ient Visit,New, Mod [facility], [address], [place], [place], [id number] , [place] tel:[phone] [facility] Other intervertebral disc displacement, lumbar regionRadiculop athy, lumbar region 0 Shirin Reis. [facility], [address] [place] [address], [address], [place], [place], [id number] , [place]. [phone] Referring Provider: Chelsea Gee, [address], [address]. tel:[phone] Family History Family Member Type Diagnosis Age At Onset No Information Payers Payer name Insurance type Covered libertarian ID [place] engel([place] [id number] CCS/TPA [id number] Social History Type Description Quantity Date Captured [...]
--- OUTSIDE RECORDS SUMMARY | 2023-07-27 06:05 | XMS_ITS | Encounter Summary ---
Author Name Unknown Organization [facility] Address [address] [place] [address] Care Team Providers Care Ball Mill Operator Name Role Phone Elsewhere, Pcp Primary Care Provider Unavailabl e Reason for Visit * Outpatient (Routine) - Closed Specialty Diagnoses / Procedures Referred By Contac t Referred To Contact Urology Diagnoses Hydrocele Nallely Arreguin, C.N.P. [address] [place] [address] [facility] Referral ID Status Reason Start Date Expiration Date Visits Re quested Visits Authorized [id number] Closed 03/09/2023 03/08/2024 1 1 Encounter Details Date Type Department Care Team (Latest Contact Info) Description 04/25/2023 11:00 AM CDT Comprehensive Visit Department of Urology in [address] [phone] Violeta Mg, P.A.-C. [address] [phone] Hydrocele Discharge Disposition: Home or Self Care Social History Tobacco Use Types Packs/Day Years [...] your living situation today? I have a [employer] place to live 04/20/2023 Sex and Gender Information Value Date Recorded Sex Assigned at Male 04/20/2023 8:14 PM CDT Gender Identity Male 04/20/2023 8:14 PM CDT Sexual Orientation Straight 04/20/2023 8: 14 PM CDT documented as of this encounter Consult Notes * Violeta Mg P.A. - 04/25/2023 11:00 AM CDT SUBJECTIVE CHIEF COMPLAINT/REASON FOR VISIT Face to Face, uro clinic Hemiscrotal pain - L HISTORY OF PRESENT ILLNESS Pleasant 33-year-old gentleman presents today for further discussion of intermittent left hemiscrotal pain, palpable increase in size of the epididymis, describes feeling a pea like sharp. This was most bothersome January of 2023, he was evaluated at outside institution symptoms have since improved. Discomfort reminded him of post vasectomy pain. 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 No changes to sexual function, no changes to urination. Specifically no incontinence, no gross hematuria. REVIEW OF SYSTEMS Per HPI. Pain 0/10 MEDICAL HISTORY There is no problem list on file for this patient. CURRENT MEDICATIONS No current outpatient medications on file. ALLERGIES/CONTRAINDICATIONS No Known Allergies OBJECTIVE VITAL SIGNS There were no vitals taken for this visit. PHYSICAL EXAMINATION General: Overall well-appearing, no acute distress. Skin: No raised areas, rashes or lesions to areas I inspected. Eyes: No scleral icterus, normal conjunctivae. Respiratory: Normal respiratory effort. Musculoskeletal: Walks with a steady gait, without assistance. Psychiatric: Appropriate affect. Neurological: Alert and oriented x4. : Normal circumcised phallus, meatus patent midline 5 mm. Bilateral testicles without masses, no appreciable hydrocele spermatocele or epididymal cysts bilaterally. No inguinal hernia bilaterally. No adenopathy. DIAGNOSTICS Scrotal ultrasound impression: 03/09/2023 (qreads written interpretation) - left hydrocele 3.2 x 1.2 x 2.5 cm - left epididymal head cyst 6 mm - normal blood flow to both testicles, no intratesticular mass ASSESSMENT / PLAN ASSESSMENT/PLAN #1 Hemiscrotal pain. Reassurance provided, no structural abnormalities on exam today, ultrasound really reassuring. Withthe hydrocele and epididymal head cyst have the ability to flux in size. Discussed conservative management tighter fitting undergarments, look floor relaxation, anti-inflammatories as needed for flares of discomfort. PATIENT EDUCATION Ready to learn, no apparent learning barriers were identified; learning preferences include listening. Explained diagnosis and treatment plan; patient expressed understanding of the content. documented in this encounter Plan of Treatment Not on file documented as of this encounter Visit Diagnoses Diagnosis Hydrocele documented in this encounter Care Teams Ball Mill Operator Relationship Specialty Start Date End Date Elsewhere, Pcp PCP - General 11/30/21 documented as of this encounter
--- OUTSIDE RECORDS SUMMARY | 2023-07-27 06:05 | XMS_ITS | Clinical Summary ---
Author Name Unknown Organization [facility] Address [place], [place] [address] Care Team Providers Care Multimedia Journalist Name Role Phone Blaine Parrish MD Primary Care Provider + Allergies No known active allergies Medications Medication Sig Dispensed Refills Start Date End Date Status sennosides-docusate, 8.6-50 mg, (SENOKOT S) 8.6-50 mg tabletIndications:Lum bar disc disorder with myelopathy Take 1-4 tablets by mouth 2 times daily. 30 tablet 1 07/23/2016 Active oxyCODONE (ROXICODONE) 5 mg immediate release tabletIndications:Lum bar disc disorder with myelopathy Take 1-2 tablets by mouth every 4 hours if needed for Pain 30 tablet 0 06/11/2020 Active Active Problems Problem Noted Date Diagnosed Date Lumbar disc disorder with myelopathy 07/22/2016 Family History Medical History Relation Name Comments Fibromyalgia Mother Osteoporosis Mother Relation Name Status Comments Mother Social History Tobacco Use Types Packs/Day Years Used Date Smoking Tobacco: Never Smokeless Tobacco: Current Chew Tobacco Cessation:Ready to Q uit: No; Counseling Given: No Alcohol Use Standard Drinks/Week Comments Yes 0 (1 standard drink = 0.6 oz pur e alcohol) social 3/week Sex and Gender Information Value Date Recorded Sex Assigned at Not on file Gender Identity Not on file Sexual Orientation Not on file Obstetrics History Last Filed Vital Signs Vital Sign Reading Time Taken Comments Blood Pressure 127/72 06/11/2020 12:45 PM DATA ENTRY MANAGER Pulse 66 06/11/2020 12:45 PM DATA ENTRY MANAGER Temperature 36.2 ??C (97.2 ??F) 06/11/2020 12:[address] Respiratory Rate 16 06/11/2020 12:45 PM DATA ENTRY MANAGER Oxygen Saturation 98% 06/11/2020 12:45 PM DATA ENTRY MANAGER Inhaled Oxygen Concentration - - Weight 74.6 kg (164 lb 7.4 oz) 06/11/2020 6:15 A M DATA ENTRY MANAGER Height 170.2 cm (5' 7) 06/11/2020 6:15 AM DATA ENTRY MANAGER Body Mass Index 25.76 06/11/2020 6:15 AM DATA ENTRY MANAGER Plan of Treatment Not on file Advance Directives Latest Code Status on File Code Status Date Activated Date Inactivated Comments Full Code 06/11/2020 5:59 AM 06/11/2020 4:53 PM Question Answer Comments Code Status Discussion: Per Existing Order Code Status History Code Status Date Activated Date Inactivated Comments Full Code 07/22/2016 5:46 PM 07/23/2016 1:35 PM Full Code 07/22/2016 12:34 PM 07/22/2016 5:46 PM Full Code 07/22/2016 12:39 AM 07/22/2016 12:34 PM Care Teams Multimedia Journalist Relationship Specialty Start Date End Date Blaine Parrish MD [address] [place] [address] PCP - General Family Practice 06/07/20
--- OUTSIDE RECORDS SUMMARY | 2023-07-27 06:05 | XMS_ITS | Encounter Summary ---
Author Name Unknown Organization [facility] Address [address] [place] [address] Care Team Providers Care Ui Software Engineer Name Role Phone Elsewhere, Pcp Primary Care Provider Unavailabl e Reason for Referral * Outpatient (Routine) - Closed Specialty Diagnoses / Procedures Referred By Contac t Referred To Contact Urology Diagnoses Hydrocele Nallely Arreguin, C.N.P. [address] [place] [address] [facility] Referral ID Status Reason Start Date Expiration Date Visits Re quested Visits Authorized [id number] Closed 03/09/2023 03/08/2024 1 1 Encounter Details Date Type Department Care Team (Late st Contact Info) Description 03/09/2023 [facility] [address] [place] [address] Nallely Arreguin, C.N.P. [address] [place] [phone] Hydrocele (Primary Dx) Social History Tobacco Use Types Packs/Day Years Used Date Smoking Tobacco: Never Smokeless Tobacco: Former PHQ-2 Answer Date Recorded PHQ-2 Score 0 03/08/2019 Nutrition Answer Date Recorded Nutrition: EVOO Fat Source Unknown 09/02 Nutrition: Servings of Fruits/Vegetables per Day Not on file 09/02/2020 Dental Answer Date Recorded Dental: Regular Dentist Unknown 09/03/19 21 Sex and Gender Information Value Date Recorded Sex Assigned at Male 04/20/2023 8:14 PM CDT Gender Identity Male 04/20/2023 8:14 PM CDT Sexual Orientation Straight 04/20/2023 8: 14 PM CDT documented as of this encounter Plan of Treatment Scheduled Referrals Name Type Priority Associated Diagnoses Orde r Schedule Urology Referral Outpatient Referral Routine Hydrocele Expected: 03/09/2023 (Approximate), Expires: 06/08/2024 documented as of this encounter Visit Diagnoses Diagnosis Hydrocele- Primary documented in this encounter Care Teams Ui Software Engineer Relationship Specialty Start Date End Date Elsewhere, Pcp PCP - General 11/30/21 documented as of this encounter
[2023-07-27 06:10] LABS: Basophils Absolute Auto 0.01 K/uL (0.00-0.30); Basophils Percent Auto 0.2 % (0.0-3.0); Eosinophils Absolute Auto 0.05 K/uL (0.00-0.50); Eosinophils Percent Auto 0.8 % (0.0-7.0); Hematocrit 44.8 % (37.0-53.0); Hemoglobin* 15.4 gm/dL (13.5-17.5); Immature Granulocytes Abs Auto 0.04 K/uL (0.00-0.30); Immature Granulocytes Pct Auto 0.6 %; Lymphocytes Absolute Auto 2.15 K/uL (0.90-2.90); Lymphocytes Percent Auto 34.3 % (20-44); Mean Corpuscular HGB Conc 34 gm/dL (32-36); Mean Corpuscular Hemoglobin 30 pg (26-34); Mean Corpuscular Volume 87 fL (80-100); Monocytes Percent Auto 8.5 % (0.0-11.0); Neutrophils Absolute Auto 3.48 K/uL (1.7-7.0); Neutrophils Percent Auto 55.6 % (42.0-72.0); Platelet Count* 204 K/uL (140-440); RDW Coefficient of Variation % 11.7 % (11.5-15.5); Red Blood Count 5.14 m/uL (4.30-5.90); White Blood Count* 6.26 K/uL (4.50-11.00)
--- NOTE | 2023-07-27 06:15 | PC.NURSE ---
C titus applied in Triage, MD updated on TTA criteria, TTA called and MD in room at approx [phone].
[2023-07-27 06:17] LABS: Slide Review Reflex No
[2023-07-27 06:18] LABS: Chloride* 104 mmol/L (96-114); Sodium* 140 mmol/L (135-149)
[2023-07-27 06:21] LABS: Anion Gap 11 mEq/L (7-15); Blood Urea Nitrogen* 15 mg/dL (5-24); Carbon Dioxide* 25 mmol/L (20-32); Creatinine* 0.9 mg/dL (0.5-1.5); Est. Creatinine Clearance* 108.13; Estimated Glomerular Filt Rate 115 ml/min
[2023-07-27 06:22] LABS: Calcium* 9.3 mg/dL (8.4-10.6); Glucose* 97 mg/dL (60-115)
[2023-07-27 06:27] LABS: C Reactive Protein* < 0.5 mg/dL (0.5-1.0)
[2023-07-27 06:28] LABS: Ethanol* < 0.01 % (0.01-0.03)
[2023-07-27] MEDS: ACETAMINOPHEN 500 MG TABLET 1000 MG PO (06:50)
[2023-07-27] MEDS: OXYCODONE 5 MG TABLET PO (06:51)
--- NOTE | 2023-07-27 06:52 | PC.NURSE ---
Alicia qureshi removed per Dr Ozuna
--- NOTE | 2023-07-27 07:47 | ED.NURSE ---
note for work given at DC.
== END 2023-07-27 07:46 | disposition home or self-care (01) ==
PROVIDERS: Emergency Provider Family Medicine; PCP Nurse Practitioner Family
DX: S06.0X0A Concussion without loss of consciousness, initial encounter (principal); S16.1XXA Strain of muscle, fascia and tendon at neck level, initial encounter; S39.012A Strain of muscle, fascia and tendon of lower back, initial encounter; S76.311A Strain of muscle, fascia and tendon of the posterior muscle group at thigh level, right thigh, initial encounter; W10.9XXA Fall (on) (from) unspecified stairs and steps, initial encounter
CPT/HCPCS: 36415; 70450; 72125; 80048; 82077; 85025; 86140; 99284; 99285; 99291; A9270

== ENCOUNTER 2023-08-09 09:02 | Outpatient (CLI) | payer BC, SELFPAY ==
--- OUTSIDE RECORDS SUMMARY | 2023-08-09 09:07 | XMS_ITS | Clinical Summary ---
Author Name Unknown Organization [facility] Address [place], [place] [address] Care Team Providers Care Dealership General Manager Name Role Phone Blaine Parrish MD Primary [...] Comments Blood Pressure 127/72 06/11/2020 12:45 PM PIGMENT MAKING SUPERVISOR Pulse 66 06/11/2020 12:45 PM PIGMENT MAKING SUPERVISOR Temperature 36.2 ??C (97.2 ??F) 06/11/2020 12:[address] Respiratory Rate 16 06/11/2020 12:45 PM PIGMENT MAKING SUPERVISOR Oxygen Saturation 98% 06/11/2020 12:45 PM PIGMENT MAKING SUPERVISOR Inhaled Oxygen Concentration - - Weight 74.6 kg (164 lb 7.4 oz) 06/11/2020 6:15 A M PIGMENT MAKING SUPERVISOR Height 170.2 cm (5' 7) 06/11/2020 6:15 AM PIGMENT MAKING SUPERVISOR Body Mass Index 25.76 06/11/2020 6:15 AM PIGMENT MAKING SUPERVISOR Plan of Treatment Not on file Advance [...] 12:39 AM 07/22/2016 12:34 PM Care Teams Dealership General Manager Relationship Specialty Start Date End Date Blaine Parrish MD [address] [place] [address] PCP - General Family Practice 06/07/20
--- OUTSIDE RECORDS SUMMARY | 2023-08-09 09:07 | XMS_ITS | Continuity of Care Document ---
Author Name Unknown Organization [facility] Address [address] [place] [address] Phone Care Team Providers Care Web Portal Developer Name Role Phone Darrin Hayden MD Unavailable [...] Copied on Encounter [facility], [address], [place], [place], [id number] , [place] tel:[phone] [facility] [place] Encounter for other specified surgical aftercare 1 Catracho Clifford. [facility], [address], [address], [place], [place], [address] , [place]. tel:[phone] Referring Provider: Chelsea Gee, [address], [address]. tel:[phone] [facility], [address], [facility], [place], [id number] , [place] tel: [phone] [facility] No Information 0 Panvica Chato. [facility], [address], [address], [place], [place], [id number] , [place]. tel: [phone] [facility], [address], [facility], [place], [id number] , [place] tel: [phone] [facility] No Information 0 Panvica Chato. [facility] [place], [address] [place] [address], [address], [place], [place], [address] , [place]. tel: [phone] Referring [facility]: [facility] [address] [place], [address]. tel:[phone] [facility], [address], [place], [place], [address] , [place] tel: [phone] [facility] No Information 0 Hayden Darrin. [facility] [place], [address] [place] [address], [address], [place], [place], [address] , [place]. tel:[phone] Referring Provider: [facility] [address] [place], [address]. [phone] Office/Outpat ient Visit,Est, Mod [facility], [address], [place], [place], [address] , [place] tel: [phone] [facility] Other intervertebral disc displacement, lumbar regionRadiculop athy, lumbar region Nov- 0 Panvica Chato. [facility] [place], [address], [address], [place], [place], [id number] , [place]. [phone] Referring Provider: [facility] [address] [place], [address]. tel:[phone] Office/Outpat ient Visit,New, Mod [facility], [address], [place], [place], [address] , [place] tel:[phone] [facility] Other intervertebral disc displacement, lumbar regionRadiculop athy, lumbar region 0 Shirin Reis. [facility], [address] [place] [address], [address], [place], [place], [address] , [place]. [phone] Referring Provider: Chelsea Gee, [address], [address]. tel:[phone] Family History Family Member Type Diagnosis Age At Onset No Information Payers Payer name Insurance type Covered democrat ID [place]is [place]el([place] [id number] CCS/TPA [id number] Social History Type Description Quantity Date Captured [...]
--- OUTSIDE RECORDS SUMMARY | 2023-08-09 09:07 | XMS_ITS | Clinical Summary ---
Author Name Unknown Organization [facility] Address [address] [place] [address] Care Team Providers Care Ocean Lifeguard Specialist Name Role Phone Elsewhere, Pcp Primary Care Provider Unavailabl e Source Comments Patient records contain information from all sites at [facility]. For routine questions regarding patient records, call [phone] during business hours, M-F 8:00 AM - 5:00 PM Central Time. Record requests for emergency care only can be directed to [phone] at any time.[facility] Allergies No known active allergies Medications No known medications Immunizations Name Administration Dates Next Due HepA Adult 02/07/2008 IPV 04/06/2006 Influenza, Unspecified 06/17/2014,05/15/2007 MCV4 (Menactra)(Discontinued) 02/03/2008 Td (Adult), adsorbed 12/14/2001 Tdap 06/17/2014 [...] your living situation today? I have a [facility] place to live 04/20/2023 Sex and [...] 172 cm (5' 7.72) 07/21/2016 10:33 AM DIVISION SUPERVISOR Body Mass Index 24.61 07/21/2016 10:33 AM DIVISION SUPERVISOR Plan of Treatment Health Maintenance Due Date Last Done Comments HIV Screening 1989 Hepatitis C Screening 1989 COVID-19 Vaccine (#1) 1989 Hepatitis A Vaccines (2 of 2 - Risk 2-dose series) 08/09/2008 02/07/2008 Influenza Vaccine (#1) 2023 4, 06/17/2014, 05/15/2007, Additional history exists Depression Screening (Annual PHQ-2) 07/02/2023 DTaP,Tdap,and Td Vaccines (4 - Td or Tdap) 06/17/2024 06/17/2014, 02/26/2002, 12/14/2001 Hepatitis B Vaccines Completed 02/26/2002, 10/17/2001, 12/11/2000 HPV Vaccines Aged Out No longer eligi ble based on patient's age to complete this topic Pneumococcal vaccine (0-64 years) Aged Out No longer eligible based on patient's age to complete this topic Care Teams Ocean Lifeguard Specialist Relationship Specialty Start Date End Date Elsewhere, Pcp PCP - General 11/30/21
--- OUTSIDE RECORDS SUMMARY | 2023-08-09 09:07 | XMS_ITS | Referral Summary ---
Author Name Unknown Organization [facility] Address [address] [place] [address] Care Team Providers Care Carton Forming Machine Helper Name Role Phone Elsewhere, Pcp Primary Care Provider Unavailabl e Source Comments Patient records contain information from all sites at [facility]. For routine questions regarding patient records, call [phone] during business hours, M-F 8:00 AM - 5:00 PM Central Time. Record requests for emergency care only can be directed to [phone] at any time.[facility] Allergies No known active allergies [...] 172 cm (5' 7.72) 07/21/2016 10:33 AM INTERNET SYSTEMS ADMINISTRATOR Body Mass Index 24.61 07/21/2016 10:33 AM INTERNET SYSTEMS ADMINISTRATOR Plan of Treatment Not on file Care Teams Carton Forming Machine Helper Relationship Specialty Start Date End Date Elsewhere, Pcp PCP - General 11/30/21
--- OUTSIDE RECORDS SUMMARY | 2023-08-09 09:08 | XMS_ITS ---
Author Name Unknown Organization [facility] Address [address] [place] [address] Care Team Providers Care Geotechnical Engineer Name Role Phone Unavailable Unavailable Unavailable Surgery Details Not on file Complications Check Surgery Details section. Procedure Estimated Blood Loss Check Surgery Details section. Procedure Findings Check Surgery Details section. Procedure Specimens Taken Check Surgery Details section.
--- OUTSIDE RECORDS SUMMARY | 2023-08-09 09:08 | XMS_ITS | Encounter Summary ---
Author Name Unknown Organization [facility] Address [address] [place] [address] Care Team Providers Care Herb Counselor Name Role Phone Elsewhere, Pcp Primary Care Provider Unavailabl e Reason for Referral * Outpatient (Routine) - Closed Specialty Diagnoses / Procedures Referred By Contac t Referred To Contact Urology Diagnoses Hydrocele Nallely Arreguin, C.N.P. [address] [place] [address] [facility] Referral ID Status Reason Start Date Expiration Date Visits Re quested Visits Authorized [id number] Closed 03/09/2023 03/08/2024 1 1 Encounter Details Date Type Department Care Team (Late st Contact Info) Description 03/09/2023 [facility] [address] [place] [address] Nallely Arreguin, C.N.P. [address] [place] [phone] Hydrocele (Primary Dx) Social History Tobacco Use [...] Primary documented in this encounter Care Teams Herb Counselor Relationship Specialty Start Date End Date Elsewhere, Pcp PCP - General 11/30/21 documented as of this encounter
--- OUTSIDE RECORDS SUMMARY | 2023-08-09 09:08 | XMS_ITS | Encounter Summary ---
Author Name Unknown Organization [facility] Address [address] [place] [address] Care Team Providers Care Farmworker Brooder Farm Name Role Phone Elsewhere, Pcp Primary Care Provider Unavailabl e Reason for Visit * Outpatient (Routine) - Closed Specialty Diagnoses / Procedures Referred By Contac t Referred To Contact Urology Diagnoses Hydrocele Nallely Arreguin, C.N.P. [address] [place] [address] [facility] Referral ID Status Reason Start Date Expiration Date Visits Re quested Visits Authorized [id number] Closed 03/09/2023 03/08/2024 1 1 Encounter Details Date Type Department Care Team (Latest Contact Info) Description 04/25/2023 11:00 AM CDT Comprehensive Visit Department of Urology in [address] [phone] Violeta Mg, P.A.-C. [address] [phone] Hydrocele Discharge Disposition: Home or Self Care [...] your living situation today? I have a [facility] place to live 04/20/2023 Sex and [...] Hydrocele documented in this encounter Care Teams Farmworker Brooder Farm Relationship Specialty Start Date End Date Elsewhere, Pcp PCP - General 11/30/21 documented as of this encounter
--- NOTE | 2023-08-09 09:15 | CRLHL7_ITS ---
For Patients: As a result of the Century Cures Act, medical imaging exams and procedure reports are released immediately into your electronic medical record. You may view this report before your referring provider. If you have questions, please contact your health care provider. INDICATION: Low back pain. COMPARISON: 01/28/2020. Technique Sagittal T1, T2, and STIR sequences. Axial T1 and T2 weighted sequences. FINDINGS: Normal vertebral body alignment. No fractures. No vertebral body loss of height. No spondylolisthesis. No ligamentous injury. No suspicious osseous lesions. Normal conus terminates at L1. T12-L1 L1-2 L2-3: No spinal canal neural foraminal narrowing. L3-4: Posterior disc bulge. Flattening of ventral thecal sac. No narrowing of the spinal canal. No neural foraminal narrowing. L4-5: Progressive disc degeneration. Modic type 1 endplate changes. Posterior disc herniation measures approximately 3 mm in short axis. Superimposed right subarticular disc protrusion measure approximately 5 mm in short axis. Mild narrowing of the spinal canal. Impingement of the traversing right L5 nerve root. Mild narrowing of bilateral foramina. Mild post arthropathy. L5-S1: Disc degeneration. Posterior disc herniation measures approximately 3 mm in short axis. No narrowing of the spinal canal. Left subarticular recess narrowing with potential impingement of the traversing left S1 nerve root. Mild narrowing of bilateral foramina. Normal visualized SI joints. Normal paraspinal soft tissues. IMPRESSION: 1. Normal alignment. No fractures. 2. Lumbar spondylosis. 3. At L4-5, progressive disc degeneration. Posterior disc herniation. Persistent but decreased size of a right subarticular disc protrusion. Overall, there is mild narrowing of spinal canal. Impingement of the traversing right L5 nerve root. 4. At L5-S1, left subarticular recess narrowing with potential impingement of the traversing left S1 nerve root. Mild narrowing of the bilateral neural foramina Dictated by Bryce Venegas MD @ 08/09/2023 12:32:47 PM (Electronically Signed)
== END 2023-08-09 09:03 | disposition home or self-care (01) ==
LOC: MRI 09:03
PROVIDERS: PCP Nurse Practitioner Family; Visit Provider Nurse Practitioner Family
DX: M54.50 Low back pain, unspecified (principal); M47.896 Other spondylosis, lumbar region; M51.36 Other intervertebral disc degeneration, lumbar region
CPT/HCPCS: 72148

== ENCOUNTER 2023-08-29 09:00 | Outpatient (RCR) | payer BC, SELFPAY | END 2023-12-18 16:31 | disposition home or self-care (01) | PROVIDERS: PCP Nurse Practitioner Family; Visit Provider Nurse Practitioner Family | DX: M25.561 Pain in right knee (principal); S06.0X1S Concussion with loss of consciousness of 30 minutes or less, sequela; Z51.89 Encounter for other specified aftercare | CPT/HCPCS: 97110; 97140; 97162; 97164; 97530 ==

== ENCOUNTER 2024-12-14 17:25 | Observation (INO) | payer BC, SELFPAY ==
[2024-12-14] VITALS (26 sets, daily range): BP systolic 125–160; BP diastolic 77–101; PULSE 45–76; RESP 12–22; TEMP 36.7–36.9; O2SAT 96–98; BMI 23.8
--- NOTE | 2024-12-14 | CRLHL7_ITS ---
For Patients: As a result of the Century Cures Act, medical imaging exams and procedure reports are released immediately into your electronic medical record. You may view this report before your referring provider. If you have questions, please contact your health care provider. CLINICAL HISTORY: Acute neurological deficit. TECHNIQUE: Standard helical CT image acquisition through the head following the administration of intravenous contrast was performed. 3D and MIP reconstructions were performed at a separate workstation and permanently archived. COMPARISON: None available. FINDINGS: No intracranial proximal large vessel occlusion or flow-limiting luminal stenosis. No evidence of cerebral aneurysm. No findings to suggest an arterial-venous shunting lesion. The major dural venous sinuses and deep venous system are patent. IMPRESSION: No intracranial proximal large vessel occlusion, flow-limiting luminal stenosis, or cerebral aneurysm. Please note that all CT scans at this facility use dose modulation, iterative reconstruction, and/or weight-based dosing when appropriate to reduce radiation dose to as low as reasonably achievable. Dictated by Tomasz Arevalo MD @ 12/15/2024 8:18:03 AM (Electronically Signed)
--- NOTE | 2024-12-14 | CRLHL7_ITS ---
For Patients: As a result of the Century Cures Act, medical imaging exams and procedure reports are released immediately into your electronic medical record. You may view this report before your referring provider. If you have questions, please contact your health care provider. INDICATION: Acute neurological deficit. COMPARISON: None available. TECHNIQUE: CTA neck with contrast bolus tracking, 3D angiographic rendering using maximum intensity projection (MIP) and images permanently archived. FINDINGS: The origins of the great vessels are patent. There is no significant carotid artery stenosis or dissection. There is no significant vertebral artery stenosis or dissection. IMPRESSION: Patent cervical arterial vasculature without hemodynamically significant stenosis. Please note that all CT scans at this facility use dose modulation, iterative reconstruction, and/or weight-based dosing when appropriate to reduce radiation dose to as low as reasonably achievable. Dictated by Tomasz Arevalo MD @ 12/15/2024 8:17:25 AM (Electronically Signed)
--- NOTE | 2024-12-14 | CRLHL7_ITS ---
For Patients: As a result of the Century Cures Act, medical imaging exams and procedure reports are released immediately into your electronic medical record. You may view this report before your referring provider. If you have questions, please contact your health care provider. INDICATION: Right leg numbness, right arm tingling, headache. TECHNIQUE: CT head without contrast. COMPARISON: CT head dated 07/27/2023. FINDINGS: Cerebral parenchyma: No evidence of acute territorial infarct. No acute intraparenchymal hemorrhage. No significant mass effect/midline shift. Normal medina-white matter differentiation. Extra-axial spaces: No extra-axial collection or hemorrhage. Ventricles: Unremarkable. Calvarium: Intact. Visualized paranasal sinuses/mastoid air cells: Grossly clear. Posterior fossa: No cerebellar tonsillar herniation. Visualized orbits: No acute abnormality. IMPRESSION: No acute intracranial abnormality. Please note that all CT scans at this facility use dose modulation, iterative reconstruction, and/or weight-based dosing when appropriate to reduce radiation dose to as low as reasonably achievable. Dictated by Chip Mckeon MD @ 12/14/2024 6:14:00 PM (Electronically Signed)
--- OUTSIDE RECORDS SUMMARY | 2024-12-14 17:27 | XMS_ITS | Clinical Summary ---
Author Organization [facility] Address [address] [place] [address] Care Team Providers Care Library Monitor Name Role Phone Unavailable Primary Care Provider Unavailabl e Source Comments You are receiving this document as you are listed as the primary care provider,follow-up provider, or the patient has been referred to you for consultation.This is in compliance with the Medicare and[employer] EHR Incentive Program,which states Providers who transition their patient to another setting of careor provider of care or refers their patient to another provider of care shouldprovide summary care record for each transition of care or referral. [facility] Allergies No known active allergies Medications amoxicillin-clav ulanate (AUGMENTIN) 875-125 mg per tablet Take 1 Tablet by mouth two times a day. 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 Family History Medical History Relation Name Comments Cancer Negative Family History Diabetes Negative Family History Heart Disease Negative Family History Hypertension Negative Family History Social History Tobacco Use Types Packs/Day Years Used Date Smoking Tobacco: Never Smokeless Tobacco: Former Tobacco Cessation:Counseling Given: Not Answered Alcohol Use Standard Drinks/Week Comments Not Currently 0 (1 standard drink = 0.6 oz pur e alcohol) PHQ-2 Answer Date Recorded PHQ-2 Score 0 10/01/2023 Sex and Gender Information Value Date Recorded Sex Assigned at Not on file Legal Sex Male 11:42 AM CDT Gender Identity Not on file Sexual Orientation Not on file Last Filed Vital Signs Vital Sign Reading Time Taken Comments Blood Pressure 141/81 04/04/2024 4:07 PM CDT Pulse 59 04/04/2024 4:07 PM CDT Temperature - - Respiratory Rate - - Oxygen Saturation - - Inhaled Oxygen Concentration - - Weight 71.1 kg (156 lb 12.8 oz) 04/04/2024 4:07 PM CDT Height - - Body Mass Index - - Plan of Treatment Health Maintenance Due Date Last Done Comments Hep C Screening (Preventive Services) 1989 HIV Screening (Preventive Services) 2005 IPV (Polio) Vaccine (2 of 3 - 4-dose series) 05/04/2006 04/06/2006 Adult Preventive Visit 2007 HepB Vaccine (1) 2008 HepA Vaccine (2 of 2 - 2-dos e series) 08/09/2008 02/07/2008 COVID-19 Vaccine ( - 2023-2 5 season) 2024 Cholesterol 2024 DTaP/Tdap/Td Vaccine (3 - Tdap) 06/17/2024 06/17/2014, 12/14/2001 Influenza Vaccine (Season Ended) 2025 06/17/2014, 05/15/2007 Zoster/Shingles Vaccine (1 o f 2) 2039 MCV4 Vaccine Completed 02/03/2008 HPV Vaccine Aged Out No longer eligi ble based on patient's age to complete this topic Hib Vaccine Aged Out No longer eligi ble based on patient's age to complete this topic Meningococcal B Vaccine Aged Out No l onger eligible based on patient's age to complete this topic Pneumococcal Vaccine Aged Out No long er eligible based on patient's age to complete this topic Insurance [facility]
--- OUTSIDE RECORDS SUMMARY | 2024-12-14 17:27 | XMS_ITS | Data Portability ---
Author Organization [facility], [facility] - (IP) Address [address] [place] [address] Assessment Encounter Date Assessment Date Assessment LastModified by Organization Details LastModified Time 08/22/2016 08/22/2016 RECOMMENDATION It appears that Mr. Hart is doing very well now one month out from an L4-L5 microdiscectomy procedure. 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 Due to the heavy labor, I would recommend that the patient be seen at [facility] for strengthening and stabilizing exercises. He is in agreement with this plan and will be seen at [facility]. He will return to the clinic on an as needed basis. No prescriptions were written today. [email or web address] Not available 08/23/2016 10:25:16 Plan of Treatment Reminders Order Date Submit Date Provider Last Modified By Organization Details Last Modified Time Details Appointments None record ed. Lab None record ed. Referral None record ed. Procedures None record ed. Surgeries None record ed. Imaging None record ed. Medication Orders None record ed. Patient TargetsNo targets recorded. Patient InstructionsNo instructions recorded. Reason for Referral None Reported. Results Created Date Observation Date Name Description Value Unit Range Abnormal Flag Note LastModifiedBy Organization Detail LastModifiedTime 07/26/19 17 07/22/2016 XR, lumba r spine No observ ation record ed. [email or web address] a Not Available 07/26/2016 17:31:01 Result Notes None recorded. Medical Equipment None Reported. Vitals None Recorded Social History None recorded. Functional Status None recorded. Mental Status None recorded. Family History Nothing Reported. Medical History No medical history recorded. Past Encounters Encounter ID Performer Location Encounter Start Date Encounter Closed Date Diagnosis/Indication Diagnosis SNOMED-CT Code Diagnosis ICD10 Code Diagnosis Note [id number] Ami Montoya PA-C [place] [facility] [address] [facility], [address] [place] [address] 08/22/2016 13:40:23 08/22/2016 14:24:33 Health Concerns Section Related Observation LastModified by Organization Detai ls LastModified Time None Recorded Concern Status LastModified by Organization Details LastModified Time None Recorded Advance Directives Directive None Recorded Payers Insurance Date Sequence Insurance Name Policy Number Policy Dubon Covered Member ID Dubon Member ID Guarantor Name 08/30/[address] [facility] [id number] David Hart [id number] David Hart Notes Date Note Type Note Provider Name and Address Organization Details Recorded Time 08/22/2016 text/html Mr. Hart ret urns to the clinic for a one month followup appointment. He is status post L4-L5 right microdiscectomy and L5 laminectomy performed by Dr. Lux on 07/23/2016. Today, the patient states that he is overall recovering very well. He notes that the pain that he had prior to surgery in his right leg has completely resolved. He only notes some residual numbness and tingling on the plantar surface of his right foot over the great toe and the medial side of his foot. This is only present if he sits for more than one to two hours. The patient notes that his back is sore around the area of the incision, but the preoperative pain in his back has much improved. Mr. Hart denies having any incisional issues, there has been no drainage or redness. He has been off of his pain medication over the last week and a half. He is only occasionally taking ibuprofen to help with his pain. JUAN F Alvarado - [facility] 08/23/2016 10:25:25
--- OUTSIDE RECORDS SUMMARY | 2024-12-14 17:27 | XMS_ITS | Clinical Summary ---
Author Organization [facility] Address [address] [place] [address] Care Team Providers Care Nurse Clinician Name Role Phone Blaine Parrish MD Primary Care Provider + Allergies No known active allergies Medications sennosides-docu sate, 8.6-50 mg, (SENOKOT S) 8.6-50 mg tabletIndicatio ns:Lumbar disc disorder with myelopathy Take 1-4 tablets by mouth 2 times daily. 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 Not on file Not on file Not on omar e Obstetrics History Last Filed Vital Signs Vital Sign Reading Time Taken Comments Blood Pressure 127/72 06/11/2020 12:45 PM [employer]ECTIVE [employer]NAL INST[employer]ER Pulse 66 06/11/2020 12:45 PM PROTECTIVE SIGNAL INSTALLER Temperature 36.2 C (97.2 F) 06/11/2020 12:45 PM PROTECTIVE SIGNAL INSTALLER Respiratory Rate 16 06/11/2020 12:45 PM PROTECTIVE SIGNAL INSTALLER Oxygen Saturation 98% 06/11/2020 12:45 PM PROTECTIVE SIGNAL INSTALLER Inhaled Oxygen Concentration - - Weight 74.6 kg (164 lb 7.4 oz) 06/11/2020 6:15 A M PROTECTIVE SIGNAL INSTALLER Height 170.2 cm (5' 7) 06/11/2020 6:15 AM PROTECTIVE SIGNAL INSTALLER Body Mass Index 25.76 06/11/2020 6:15 AM PROTECTIVE SIGNAL INSTALLER Plan of Treatment Not on file Insurance [facility] Advance Directives * Full Code (Latest Code Status on File) Date Activated Date Inactivated Comments 06/11/2020 5:59 AM 06/11/2020 4:53 PM Question Answer Comments Code Status Discussion: Per Existing Order * Full Code Date Activated Date Inactivated Comments 07/22/2016 5:46 PM 07/23/2016 1:35 PM * Full Code Date Activated Date Inactivated Comments 07/22/2016 12:34 PM 07/22/2016 5:46 PM * Full Code Date Activated Date Inactivated Comments 07/22/2016 12:39 AM 07/22/2016 12:34 PM Care Teams Nurse Clinician Relationship Specialty Start Date End Date Blaine Parrish MD [address] [place] [address] PCP - General Family Practice 06/07/20
[2024-12-14 18:05] LABS: Chloride* 100 mmol/L (96-114); Potassium* 3.6 mmol/L (3.6-5.1); Sodium* 137 mmol/L (135-149)
[2024-12-14 18:07] LABS: Basophils Absolute Auto 0.02 K/uL (0.00-0.30); Basophils Percent Auto 0.2 % (0.0-3.0); Eosinophils Absolute Auto 0.08 K/uL (0.00-0.50); Eosinophils Percent Auto 0.9 % (0.0-7.0); Hematocrit 44.9 % (37.0-53.0); Hemoglobin* 15.6 gm/dL (13.5-17.5); Immature Granulocytes Abs Auto 0.08 K/uL (0.00-0.30); Immature Granulocytes Pct Auto 0.9 %; Lymphocytes Absolute Auto 2.89 K/uL (0.90-2.90); Lymphocytes Percent Auto 32.6 % (20-44); Mean Corpuscular HGB Conc 35 gm/dL (32-36); Mean Corpuscular Hemoglobin 31 pg (26-34); Mean Corpuscular Volume 88 fL (80-100); Monocytes Percent Auto 7.2 % (0.0-11.0); Neutrophils Absolute Auto 5.16 K/uL (1.7-7.0); Neutrophils Percent Auto 58.2 % (42.0-72.0); Platelet Count* 225 K/uL (140-440); RDW Coefficient of Variation % 11.9 % (11.5-15.5); Red Blood Count 5.11 m/uL (4.30-5.90); White Blood Count* 8.87 K/uL (4.50-11.00)
[2024-12-14 18:08] LABS: Anion Gap 12 mEq/L (7-15); Blood Urea Nitrogen* 16 mg/dL (5-24); Calcium* 9.6 mg/dL (8.4-10.6); Carbon Dioxide* 25 mmol/L (20-32); Estimated Glomerular Filt Rate 101 ml/min; Glucose* 101 mg/dL (60-115); Magnesium* 2.1 mg/dL (1.5-2.6)
[2024-12-14 18:09] LABS: Slide Review Reflex No
--- NOTE | 2024-12-14 18:42 | ED_ITS ---
HPI - Neuro Symptoms/Deficit General Date Seen: 12/14/24 Chief Complaint: Neuro Symptoms/Altered Deficit Stated Complaint: Right body numbness, lightheadedness Time Seen by Provider: 12/14/24 17:39 Source: patient Mode of arrival: ambulatory Limitations: no limitations History of Present Illness HPI Narrative: Patient is a 34-year-old male presenting for numbness to the right side of his b celine. States today around 12:30 he started noticing some blurry vision in his right eye and numbness to his right arm and leg. Symptoms last about 10 or 15 minutes and he was able to ambulate during this time. He remained asymptomatic until about 16:30 symptoms began again. He did not have the visual disturbance this time though. States symptoms seem worse this time in his right arm and leg feel like they fell asleep. Denies ever having symptoms like this before. No history of neurological issues that he is aware of. Has had previous back surgeries and has had some issues with leg numbness the past but states this feels different. No history of strokes. No other medical problems that he is aware of. Did not notice any obvious weakness with his symptoms. Move family history of neurological issues like this. No other concerns noted. 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 Non-smoker Social drinker 3/week Exercises three times per week - biking Smoking Status: Never smoker Do you use any of these nicotine containing products: None Second hand tobacco smoke exposure: No How often do you have a drink containing alcohol: monthly or less How many standard drinks containing alcohol do you have on a typical day: 1 or 2 How often do you have six or more drinks on one occasion: Never AUDIT-C Alcohol total score: 1 Non-prescribed substance use: denies use service: No Exam Narrative: Exam Narrative: Const: Well-nourished, Well-developed, in no distress Eyes: PERRL, no conjunctival injection, and symmetrical lids HENT: Atraumatic external nose and ears. Moist mucous membranes. Neck: Symmetric, trachea midline, No thyromegaly. CVS: RRR, No murmurs or gallops. Peripheral pulses 2+ and equal in all extremities RESP: Unlabored respiratory effort. Clear to auscultation bilaterally. GI: Nontender/Nondistended, No rebound or guarding. MSK:Extremities w/o deformity, Normal Active ROM Skin: Warm, Dry. No rashes or lesions. Neuro: Normal Muscle tone, Cranial nerves 2-12 grossly intact, normal [id number]-jcwb, normal [id number]-[id number], normal gait, normal strength 5/5 upper lower extremities on the left and 4+/5 on the right, decreased sensation noted on his right extremities compared To his left, normal rapid alternating movements. NIH stroke scale 1 Psych: Awake, Alert, & Oriented x3. Appropriate mood and affect. Const: Vital Signs, click to edit/add: Vital Signs - 24 hr 12/14/24 17:42 12/14/24 18:03 12/14/24 18:11 Temperature 98.4 F Pulse Rate 71 76 Pulse Rate [Pulse Oximeter] 67 Respiratory Rate 18 21 Blood Pressure 160/95 H Blood Pressure [Ri ght Upper Arm] 151/101 H Pulse Oximetry 98 98 98 Oxygen Delivery Me thod Room Air 12/14/24 18:15 12/14/24 18:17 12/14/24 18:18 Temperature Pulse Rate 66 59 L 58 L Pulse Rate [Pulse Oximeter] Respiratory Rate 21 Blood Pressure 143/83 H Blood Pressure [Ri ght Upper Arm] Pulse Oximetry 97 96 97 Oxygen Delivery Me thod 12/14/24 18:37 12/14/24 18:38 12/14/24 18:39 Temperature Pulse Rate 51 L 55 L Pulse Rate [Pulse Oximeter] Respiratory Rate 22 16 Blood Pressure 137/86 Blood Pressure [Ri ght Upper Arm] Pulse Oximetry 97 97 Oxygen Delivery Me thod 12/14/24 18:45 12/14/24 18:46 12/14/24 18:47 Temperature Pulse Rate 68 56 L 51 L Pulse Rate [Pulse Oximeter] Respiratory Rate 12 14 Blood Pressure 130/77 Blood Pressure [Ri ght Upper Arm] Pulse Oximetry 97 97 97 Oxygen Delivery Me thod 12/14/24 19:00 12/14/24 19:02 12/14/24 19:03 Temperature Pulse Rate 52 L 51 L 56 L Pulse Rate [Pulse Oximeter] Respiratory Rate 18 16 18 Blood Pressure 128/94 H Blood Pressure [Ri ght Upper Arm] Pulse Oximetry 96 97 97 Oxygen Delivery Me thod Course Vital Signs Vital signs: Initial Vital Signs Respiratory Effort Normal, Spontaneous, Non-Labored 12/14/24 17:41 Respiratory Depth Normal 12/14/24 17:41 Respiratory Pattern Normal 12/14/24 17:41 Vital Signs Temperature 98.4 F 12/14/24 17:42 Pulse Rate 67 12/14/24 17:42 Respiratory Rate 18 12/14/24 17:42 Blood Pressure 151/101 H 12/14/24 17:42 Pulse Oximetry 98 12/14/24 17:42 Oxygen Delivery Method Room Air 12/14/24 17:42 Temperature 98.4 F 12/14/24 17:42 Pulse Rate 56 L 12/14/24 19:03 Respiratory Rate 18 12/14/24 19:03 Blood Pressure 128/94 H 12/14/24 19:02 Pulse Oximetry 97 12/14/24 19:03 Oxygen Delivery Method Room Air 12/14/24 17:42 MDM - Neuro Symptoms/Deficit MDM Narrative Medical decision making narrative: Patient is a 34-year-old male presenting to emergency department for concerns of numbness to the right side of his body. When he 1st arrived here she staff called a stroke code considering symptoms went away and came back in the past couple hours. I went and saw the patient immediately started to get a history and sent the patient quickly to get a CT scan and CTA. I then spoke to Dr. Marion who agreed with this plan although he is not feel overtly convinced that this is a stroke. After patient returned from his CT scans are went to speak to him further and was able to get the rest of his history as stated in the HPI. Now though his symptoms have resolved. He still some mild numbness in the arm and along the medial malleolus of his right leg but otherwise strength is back to normal and he does not feel like he has the same sensation of his extremities being asleep. CT imaging reviewed by myself the radiologist showed no acute concerning abnormalities. I spoke to Neurology again and they recommended aspirin along with MRI in the morning. He states he will informs colleagues of the patient. Patient's lab work shows no concerning findings. Patient will be admitted and he agrees to this plan Lab Data Labs: Lab Results 12/14/24 Range/Units 17:40 WBC 8.87 (4.50-11.00) K/uL RBC 5.11 (4.30-5.90) m/uL Hgb 15.6 (13.5-17.5) gm/dL Hct 44.9 (37.0-53.0) % MCV 88 (80-100) fL MCH 31 (26-34) pg MCHC 35 (32-36) gm/dL RDW Coeff of Jennifer 11.9 (11.5-15.5) % Plt Count 225 (140-440) K/uL Neut % (Auto) 58.2 (42.0-72.0) % Lymph % (Auto) 32.6 (20-44) % Lagrange % (Auto) 7.2 (0.0-11.0) % Eos % (Auto) 0.9 (0.0-7.0) % Baso % (Auto) 0.2 (0.0-3.0) % Neut # (Auto) 5.16 (1.7-7.0) K/uL Lymph # (Auto) 2.89 (0.90-2.90) K/uL Lagrange # (Auto) 0.60 (0.00-0.90) K/UL Eos # (Auto) 0.08 (0.00-0.50) K/uL Baso # (Auto) 0.02 (0.00-0.30) K/uL Abs Immat Gran (auto) 0.08 (0.00-0.30) K/uL Imm/Tot Granulo (auto) 0.9 % Sodium 137 (135-149) mmol/L Potassium 3.6 (3.6-5.1) mmol/L Chloride 100 (96-114) mmol/L Carbon Dioxide 25 (20-32) mmol/L Anion Gap 12 (7-15) mEq/L BUN 16 (5-24) mg/dL Creatinine 1.0 (0.5-1.5) mg/dL Estimated Creat Clear 96.40 Estimated GFR 101 ml/min Glucose 101 (60-115) mg/dL Calcium 9.6 (8.4-10.6) mg/dL Magnesium 2.1 (1.5-2.6) mg/dL Troponin I < 0.01 (0.01-0.04) ng/mL Imaging Data CT scan head: Attestation: I have reviewed the pertinent imaging results. Radiologist's impression: No acute intracranial abnormality. Please note that all CT scans at this facility use dose modulation, iterative reconstruction, and/or weight-based dosing when appropriate to reduce radiation dose to as low as reasonably achievable. Dictated by Chip Mckeon MD @ 12/14/2024 6:14:00 PM CTA head and neck: Attestation: I have reviewed the pertinent imaging results. Radiologist's impression: Preliminary Report: CTA head: No evidence of occlusion or significant aneurysm. CTA neck: No evidence of dissection or occlusion. Dictated by Chip Mckeon MD @ 12/14/2024 6:28:29 PM ECG Data Attestation: I personally reviewed and interpreted this ECG as follows: Prior ECG tracings: not available for review Interpretation: Normal sinus rhythm with a rate of 71 beats per minute, normal intervals, normal axis, no ST or T-wave abnormalities. Discharge Plan Discharge Clinical Impression: Numbness on right side Patient Disposition: Admitted As Observation Condition: Improved
[2024-12-14 19:00] LABS: Troponin I* < 0.01 ng/mL (0.01-0.04)
[2024-12-14] MEDS: ASPIRIN 81 MG TAB.CHEW 324 MG PO (19:24)
--- NOTE | 2024-12-14 21:07 | P.IMHP_ITS ---
Assessment and Plan Assessment and plan (1) Weakness of right side of body: Problem comment: -transient -differential diagnosis includes TIA, stroke, migraine equivalent, seizure, cerebral neoplasm, psychiatric -after confer a with Neurology, patient is started on aspirin and will check MRI of the brain tomorrow with further neurology follow-up Status: Acute (2) Numbness on right side: Problem comment: -transient -differential diagnosis includes TIA, stroke, migraine equivalent, seizure, cerebral neoplasm, psychiatric -after confer a with Neurology, patient is started on aspirin and will check MRI of the brain tomorrow with further neurology follow-up Status: Acute Plan 1. Reviewed impression, plans, recommendations with patient and 2. Check a lipid panel in the morning, and hold off on obtaining an echocardiogram until we obtain results of MR scan 3. Answered their questions to their satisfaction 4. They are agreeable with above stated plans and recommendations Total Time Spent Total Time Spent: 65 minutes Hospitalist- H&P: HPI History of Present Illness Date Seen: 12/14/24 Chief complaint: transient R UE/LE weak/numb & R vision change Narrative: David Hart is a 34 year old man generally healthy presents with new onset transient right upper extremity and right lower extremity numbness and weakness and right visual fogginess. First episode occurred today around 12:30 p.m. and lasted 10-15 minutes with full resolution. Second episode occurred around 4:30 p.m. without the visual fogginess, with the right upper and lower extremity weakness again lasting about 10-15 minutes but the right upper extremity numbness lasting about 1 hour. Additionally when patient 1st arrived at the hospital he had a near syncopal episode which was only momentary. Has never had any similar episodes in the past. Denies fevers, rigors, diaphoresis. Did not have overuse of the right side of his body. No trauma or injury. No prior neurologic deficits. No prior known strokes. Does acknowledge upon my specific questioning that as a youngster he did have migraine headaches but has not had any such episodes for nearly 3 decades. Denies family history of any similar concerns. No family history of seizures, migraine headaches, strokes, brain neoplasms. 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-smoker, but does chew tobacco Social drinker 3/week Exercises three times per week - biking Smoking Status: Never smoker Do you use any of these nicotine containing products: None Second hand tobacco smoke exposure: No How often do you have a drink containing alcohol: monthly or less How many standard drinks containing alcohol do you have on a typical day: 1 or 2 How often do you have six or more drinks on one occasion: Never AUDIT-C Alcohol total score: 1 Non-prescribed substance use: denies use service: No Meds Home Medications and Allergies Home Medications ?Medication ?Instructions ?Recorded ?Confirmed ?Type No Known Home Medications 12/14/2411/30 History Allergies Allergy/AdvReac Type Severity Reaction Status Date / Time No Known Drug Allergies Allergy Verified 12/14/24 17:41 Exam Narrative: Exam Narrative: Examine him in the emergency department. Appears comfortable and in no acute distress. Alert, oriented x4. Friendly, articulate, cooperative. Vision and hearing are normal on testing. Normal tympanic membranes. Midline nasal septum. Dentition in good repair. Normal oropharynx. Cranial nerves 3-12 grossly normal. No focal motor neurologic deficits. Independent in transfer, station, gait. No ataxia. Normal rapid alternating movements of upper extremities and lower extremities. Normal finger to nose testing. Normal strength testing upper extremities and lower extremities. Sensation awareness equal and symmetric bilateral upper extremities and lower extremities at this time. Lungs are clear to auscultation. Heart tones with regular rhythm. Abdomen with active bowel sounds, soft, nontender. Extremities without edema. Skin warm dry and intact. Const: Vital Signs, click to edit/add: Vital Signs - 24 hr 12/14/24 17:42 12/14/24 18:03 12/14/24 18:11 Temperature 98.4 F Pulse Rate 71 76 Pulse Rate [Pulse Oximeter] 67 Respiratory Rate 18 21 Blood Pressure 160/95 H Blood Pressure [Ri ght Upper Arm] 151/101 H Pulse Oximetry 98 98 98 Oxygen Delivery Me thod Room Air 12/14/24 18:15 12/14/24 18:17 12/14/24 18:18 Temperature Pulse Rate 66 59 L 58 L Pulse Rate [Pulse Oximeter] Respiratory Rate 21 Blood Pressure 143/83 H Blood Pressure [Ri ght Upper Arm] Pulse Oximetry 97 96 97 Oxygen Delivery Me thod 12/14/24 18:37 12/14/24 18:38 12/14/24 18:39 Temperature Pulse Rate 51 L 55 L Pulse Rate [Pulse Oximeter] Respiratory Rate 22 16 Blood Pressure 137/86 Blood Pressure [Ri ght Upper Arm] Pulse Oximetry 97 97 Oxygen Delivery Me thod 12/14/24 18:45 12/14/24 18:46 12/14/24 18:47 Temperature Pulse Rate 68 56 L 51 L Pulse Rate [Pulse Oximeter] Respiratory Rate 12 14 Blood Pressure 130/77 Blood Pressure [Ri ght Upper Arm] Pulse Oximetry 97 97 97 Oxygen Delivery Me thod 12/14/24 19:00 12/14/24 19:02 12/14/24 19:03 Temperature Pulse Rate 52 L 51 L 56 L Pulse Rate [Pulse Oximeter] Respiratory Rate 18 16 18 Blood Pressure 128/94 H Blood Pressure [Ri ght Upper Arm] Pulse Oximetry 96 97 97 Oxygen Delivery Me thod 12/14/24 19:15 12/14/24 19:17 12/14/24 19:30 Temperature Pulse Rate 58 L 55 L 48 L Pulse Rate [Pulse Oximeter] Respiratory Rate 12 15 18 Blood Pressure 144/93 H Blood Pressure [Ri ght Upper Arm] Pulse Oximetry 98 98 97 Oxygen Delivery Me thod 12/14/24 19:32 12/14/24 19:45 12/14/24 19:47 Temperature Pulse Rate 47 L 51 L 54 L Pulse Rate [Pulse Oximeter] Respiratory Rate 14 15 15 Blood Pressure 136/83 125/86 Blood Pressure [Ri ght Upper Arm] Pulse Oximetry 96 97 97 Oxygen Delivery [facility] Hospitalist - H&P: Result Labs Labs: Short CBC 12/14/24 Range/Units 17:40 WBC 8.87 (4.50-11.00) K/uL Hgb 15.6 (13.5-17.5) gm/dL Hct 44.9 (37.0-53.0) % Plt Count 225 (140-440) K/uL BMP 12/14/24 17:40 Sodium 137 Potassium 3.6 Chloride 100 Carbon Dioxide 25 BUN 16 Creatinine 1.0 Glucose 101 Calcium 9.6 Cardiac Enzymes 12/14/24 Range/Units 17:40 Troponin I < 0.01 (0.01-0.04) ng/mL ECG Attestation: I personally reviewed and interpreted this ECG as follows: ECG interpretation date: 12/14/24 Interpretation: Normal sinus rhythm. Imaging CT scan - head: Radiologist's impression: No acute changes. CTA head and neck: Radiologist's impression: No large vessel abnormalities
[2024-12-14] MEDS: SODIUM CHLORIDE 0.9 % (FLUSH) 10 ML SYRINGE 5 ML IVF (21:57)
[2024-12-15 03:00] VITALS: BP 120/77; PULSE 47; RESP 16; TEMP 36.8; O2SAT 98
[2024-12-15 04:21] VITALS: BMI 23.3; BMI 23.4
[2024-12-15 06:00] VITALS: BP 126/86; BP 126/99; BP 130/80; PULSE 47; PULSE 51; PULSE 52
--- NOTE | 2024-12-15 06:41 | PC.NURSE ---
End of shift report [id number]: Pt was admitted to the floor around 2029.?Pts heart rate is bradycardic, pt remains asymptomatic and reports he has a lower HR at baseline. Pt is pleasant and cooperative. Pt denies dizziness and headache.?Pt denies pain. Neuros remain intact. Pt reported R medial montilla dullness and R medial ankle tickly sensation at 2300. At 0300 pt reported no sensation differences between his lower extremities and stated ?from the right montilla down feels accountant controller than the left.? Bilateral pedal pulses are present and equal. Pt has 5/5 strength on bilateral upper and lower extremities. Pt ambulates independently in room.?
--- NOTE | 2024-12-15 07:00 | CRLHL7_ITS ---
For Patients: As a result of the Century Cures Act, medical imaging exams and procedure reports are released immediately into your electronic medical record. You may view this report before your referring provider. If you have questions, please contact your health care provider. INDICATION: Transient right upper extremity and lower extremity weakness. Numbness. Right-sided visual changes. TECHNIQUE: Brain MRI without contrast. COMPARISON: Head CT from 12/14/2024. FINDINGS: No evidence of acute ischemia. No evidence of acute or chronic intracranial blood products. No pathologic intracranial signal abnormality. No mass effect or herniation. No hydrocephalus or extra-axial collections. The pituitary gland, parasellar structures and optic chiasm are normal. Posterior fossa is normal. All the major intracranial vascular structures demonstrate normal flow-related signal. The orbital contents are normal. No calvarial or skull base marrow replacing process. Bilateral maxillary sinus mucous retention cysts. No extracranial soft tissue findings. IMPRESSION: 1. No significant intracranial abnormality. Dictated by Larry Bañuelos MD @ 12/15/2024 8:21:28 AM (Electronically Signed)
[2024-12-15 07:01] LABS: Cholesterol* 188 mg/dL (90-199); HDL Cholesterol* 62 mg/dL (>=40); LDL Cholesterol Calculated 101 mg/dL (<100); Triglycerides* 123 mg/dL (40-149)
[2024-12-15 07:38] VITALS: BP 141/97; PULSE 52; PULSE 59; RESP 16; TEMP 36.5; O2SAT 98; O2SAT 99
[2024-12-15 10:17] VITALS: PULSE 50
[2024-12-15 11:24] VITALS: BP 134/82; PULSE 50; RESP 16; TEMP 37.4; O2SAT 99
--- NOTE | 2024-12-15 14:10 | PC.NURSE ---
Patient discharged home with . PIV taken out and cathter intact. Patient has f/u with PCP tomorrow. Also has an outpatient MRI scheduled for at [facility]. Patient has info on this. Order was placed as a hold and call. Will be a direct admission if concerns on MRI. All questions answered. Patient left via ambulatory with .
--- NOTE | 2024-12-15 16:02 | P.DS_ITS ---
DS: Providers Provider Date Seen: 12/15/24 Date of admission: 12/14/24 20:09 Primary care physician: Nallely Arreguin, RF TEST TECHNICIAN, [employer] Admitting Clinician: Temo Bates MD Attending Physician on discharge: [facility] Date of Discharge: 12/15/24 DS: Diagnosis Discharge Diagnosis (1) Weakness of right side of body: Status: Acute Problem details: -transient -differential diagnosis includes TIA, stroke, migraine equivalent, seizure, MS -MRI normal; d/w neurology (dr. Sangeeta Clark) - concern for MS -will discharge home with close f/u. Cervical and Thoracic MRI with contrast ordered for this week; hospital team will be responsible for hold and call and determine status (inpatient for IV [employer]) or home and routine PCP f/u. (2) Numbness on right side: Status: Acute Problem details: as above (3) Anxiety and depression: Status: Acute Problem details: complicates picture a little. prn ativan in limited quantity rx'd. DS: Summary Hospital Course Hospital Course: FINAL DIAGNOSIS/FOLLOW UP ISSUES: 1. Atypical upper right and lower right extremity paresthesia. Symptoms are much improved from presentation. However, space-occupying lesion in the cervical or thoracic spine is considered. Discharge planning includes outpatient thoracic and cervical contrast MRI arranged at [facility] and and follow- up will be with hospital team by phone. BRIEF HOSPITAL COURSE: Patient was admitted for overnight. Synopsis of acute inpatient issues are outlined above. Chronic medical conditions with notable findings outlined above. DISCHARGE MEDICATIONS: See Reconciled list - SIGNIFICANT CHANGES: 1 mg Ativan p.o. at bedtime p.r.n.. Specific instructions to the patient and follow-up are outlined below. REVIEW OF SYSTEMS No new chest pain or dyspnea Pain controlled No voiding difficulties Tolerating diet challenge PHYSICAL EXAM: CONSTITUTIONAL: Conversive, good historian. A/O. Knows setting and context. GENERAL: Well-developed and above ideal body weight, in no respiratory distress. VITAL SIGNS: see record. HEENT: Sclerae are anicteric. No petechiae. CARDIAC: rhythm is regular. There is no S3 or rub. No harsh murmurs. Extremities show trace edema with symmetrical pulses. PULM: good air entry with no wheeze. NEURO: Speech is fluent. A brief neurologic exam is negative. SKIN: No rashes, petechiae, concerning changes PSYCHIATRIC: Euthymic. DISPOSITION: Home with Time spent on discharge 37 minutes. Status at Discharge Overall status at discharge: patient is progressing back to baseline Time Spent with Patient Time attestation: Total time spent providing and/or coordinating discharge services: Time spent: Greater than 30 minutes Exam Const: Vital Signs, click to edit/add: Vital Signs - 24 hr 12/14/24 17:42 12/14/24 18:03 12/14/24 18:11 Temperature 98.4 F Pulse Rate 71 76 Pulse Rate [Pulse Oximeter] 67 Pulse Rate [Right Pulse Oximeter] Pulse Rate [Right Radial] Pulse Rate [orthos tatic lying Right Pulse Oximeter] Pulse Rate [orthos tatic sitting Righ t Pulse Oximeter] Pulse Rate [orthos tatic standing Rig ht Pulse Oximeter] Respiratory Rate 18 21 Blood Pressure 160/95 H Blood Pressure [Le ft Arm] Blood Pressure [Ri ght Upper Arm] 151/101 H Blood Pressure [or thostatic lying Le ft Arm] Blood Pressure [or thostatic sitting Left Arm] Blood Pressure [or thostatic standing Left Arm] Pulse Oximetry 98 98 98 Oxygen Delivery Me thod Room Air 12/14/24 18:15 12/14/24 18:17 12/14/24 18:18 Temperature Pulse Rate 66 59 L 58 L Pulse Rate [Pulse Oximeter] Pulse Rate [Right Pulse Oximeter] Pulse Rate [Right Radial] Pulse Rate [orthos tatic lying Right Pulse Oximeter] Pulse Rate [orthos tatic sitting Righ t Pulse Oximeter] Pulse Rate [orthos tatic standing Rig ht Pulse Oximeter] Respiratory Rate 21 Blood Pressure 143/83 H Blood Pressure [Le ft Arm] Blood Pressure [Ri ght Upper Arm] Blood Pressure [or thostatic lying Le ft Arm] Blood Pressure [or thostatic sitting Left Arm] Blood Pressure [or thostatic standing Left Arm] Pulse Oximetry 97 96 97 Oxygen Delivery Me thod 12/14/24 18:37 12/14/24 18:38 12/14/24 18:39 Temperature Pulse Rate 51 L 55 L Pulse Rate [Pulse Oximeter] Pulse Rate [Right Pulse Oximeter] Pulse Rate [Right Radial] Pulse Rate [orthos tatic lying Right Pulse Oximeter] Pulse Rate [orthos tatic sitting Righ t Pulse Oximeter] Pulse Rate [orthos tatic standing Rig ht Pulse Oximeter] Respiratory Rate 22 16 Blood Pressure 137/86 Blood Pressure [Le ft Arm] Blood Pressure [Ri ght Upper Arm] Blood Pressure [or thostatic lying Le ft Arm] Blood Pressure [or thostatic sitting Left Arm] Blood Pressure [or thostatic standing Left Arm] Pulse Oximetry 97 97 Oxygen Delivery Me thod 12/14/24 18:45 12/14/24 18:46 12/14/24 18:47 Temperature Pulse Rate 68 56 L 51 L Pulse Rate [Pulse Oximeter] Pulse Rate [Right Pulse Oximeter] Pulse Rate [Right Radial] Pulse Rate [orthos tatic lying Right Pulse Oximeter] Pulse Rate [orthos tatic sitting Righ t Pulse Oximeter] Pulse Rate [orthos tatic standing Rig ht Pulse Oximeter] Respiratory Rate 12 14 Blood Pressure 130/77 Blood Pressure [Le ft Arm] Blood Pressure [Ri ght Upper Arm] Blood Pressure [or thostatic lying Le ft Arm] Blood Pressure [or thostatic sitting Left Arm] Blood Pressure [or thostatic standing Left Arm] Pulse Oximetry 97 97 97 Oxygen Delivery Me thod 12/14/24 19:00 12/14/24 19:02 12/14/24 19:03 Temperature Pulse Rate 52 L 51 L 56 L Pulse Rate [Pulse Oximeter] Pulse Rate [Right Pulse Oximeter] Pulse Rate [Right Radial] Pulse Rate [orthos tatic lying Right Pulse Oximeter] Pulse Rate [orthos tatic sitting Righ t Pulse Oximeter] Pulse Rate [orthos tatic standing Rig ht Pulse Oximeter] Respiratory Rate 18 16 18 Blood Pressure 128/94 H Blood Pressure [Le ft Arm] Blood Pressure [Ri ght Upper Arm] Blood Pressure [or thostatic lying Le ft Arm] Blood Pressure [or thostatic sitting Left Arm] Blood Pressure [or thostatic standing Left Arm] Pulse Oximetry 96 97 97 Oxygen Delivery Me thod 12/14/24 19:15 12/14/24 19:17 12/14/24 19:30 Temperature Pulse Rate 58 L 55 L 48 L Pulse Rate [Pulse Oximeter] Pulse Rate [Right Pulse Oximeter] Pulse Rate [Right Radial] Pulse Rate [orthos tatic lying Right Pulse Oximeter] Pulse Rate [orthos tatic sitting Righ t Pulse Oximeter] Pulse Rate [orthos tatic standing Rig ht Pulse Oximeter] Respiratory Rate 12 15 18 Blood Pressure 144/93 H Blood Pressure [Le ft Arm] Blood Pressure [Ri ght Upper Arm] Blood Pressure [or thostatic lying Le ft Arm] Blood Pressure [or thostatic sitting Left Arm] Blood Pressure [or thostatic standing Left Arm] Pulse Oximetry 98 98 97 Oxygen Delivery Me thod 12/14/24 19:32 12/14/24 19:45 12/14/24 19:47 Temperature Pulse Rate 47 L 51 L 54 L Pulse Rate [Pulse Oximeter] Pulse Rate [Right Pulse Oximeter] Pulse Rate [Right Radial] Pulse Rate [orthos tatic lying Right Pulse Oximeter] Pulse Rate [orthos tatic sitting Righ t Pulse Oximeter] Pulse Rate [orthos tatic standing Rig ht Pulse Oximeter] Respiratory Rate 14 15 15 Blood Pressure 136/83 125/86 Blood Pressure [Le ft Arm] Blood Pressure [Ri ght Upper Arm] Blood Pressure [or thostatic lying Le ft Arm] Blood Pressure [or thostatic sitting Left Arm] Blood Pressure [or thostatic standing Left Arm] Pulse Oximetry 96 97 97 Oxygen Delivery Me thod 12/14/24 20:30 12/14/24 20:58 12/14/24 21:37 Temperature 98.1 F Pulse Rate Pulse Rate [Pulse Oximeter] Pulse Rate [Right Pulse Oximeter] 48 L Pulse Rate [Right Radial] Pulse Rate [orthos tatic lying Right Pulse Oximeter] 45 L Pulse Rate [orthos tatic sitting Righ t Pulse Oximeter] 51 L Pulse Rate [orthos tatic standing Rig ht Pulse Oximeter] 64 Respiratory Rate 16 16 Blood Pressure Blood Pressure [Le ft Arm] 144/89 H Blood Pressure [Ri ght Upper Arm] Blood Pressure [or thostatic lying Le ft Arm] 130/84 Blood Pressure [or thostatic sitting Left Arm] 135/89 Blood Pressure [or thostatic standing Left Arm] 141/93 H Pulse Oximetry 98 98 Oxygen Delivery Me thod Room Air Room Air 12/14/24 22:54 12/14/24 23:00 12/14/24 23:00 Temperature 98.5 F Pulse Rate Pulse Rate [Pulse Oximeter] Pulse Rate [Right Pulse Oximeter] 51 L 51 L Pulse Rate [Right Radial] Pulse Rate [orthos tatic lying Right Pulse Oximeter] Pulse Rate [orthos tatic sitting Righ t Pulse Oximeter] Pulse Rate [orthos tatic standing Rig ht Pulse Oximeter] Respiratory Rate 16 16 Blood Pressure Blood Pressure [Le ft Arm] 135/89 Blood Pressure [Ri ght Upper Arm] Blood Pressure [or thostatic lying Le ft Arm] Blood Pressure [or thostatic sitting Left Arm] Blood Pressure [or thostatic standing Left Arm] Pulse Oximetry 97 97 Oxygen Delivery Me thod Room Air Room Air 12/14/24 23:00 12/14/24 23:00 12/15/24 03:00 Temperature Pulse Rate 50 L Pulse Rate [Pulse Oximeter] Pulse Rate [Right Pulse Oximeter] 51 L 47 L Pulse Rate [Right Radial] Pulse Rate [orthos tatic lying Right Pulse Oximeter] Pulse Rate [orthos tatic sitting Righ t Pulse Oximeter] Pulse Rate [orthos tatic standing Rig ht Pulse Oximeter] Respiratory Rate 16 Blood Pressure Blood Pressure [Le ft Arm] Blood Pressure [Ri ght Upper Arm] Blood Pressure [or thostatic lying Le ft Arm] Blood Pressure [or thostatic sitting Left Arm] Blood Pressure [or thostatic standing Left Arm] Pulse Oximetry Oxygen Delivery Me thod 12/15/24 03:00 12/15/24 06:00 12/15/24 07:38 Temperature 98.3 F Pulse Rate Pulse Rate [Pulse Oximeter] Pulse Rate [Right Pulse Oximeter] 47 L Pulse Rate [Right Radial] 59 L Pulse Rate [orthos tatic lying Right Pulse Oximeter] 47 L Pulse Rate [orthos tatic sitting Righ t Pulse Oximeter] 52 L Pulse Rate [orthos tatic standing Rig ht Pulse Oximeter] 51 L Respiratory Rate 16 Blood Pressure Blood Pressure [Le ft Arm] 120/77 Blood Pressure [Ri ght Upper Arm] Blood Pressure [or thostatic lying Le ft Arm] 126/86 Blood Pressure [or thostatic sitting Left Arm] 130/80 Blood Pressure [or thostatic standing Left Arm] 126/99 H Pulse Oximetry 98 Oxygen Delivery Me thod Room Air 12/15/24 07:38 12/15/24 07:38 12/15/24 10:17 Temperature 97.7 F Pulse Rate 50 L Pulse Rate [Pulse Oximeter] Pulse Rate [Right Pulse Oximeter] Pulse Rate [Right Radial] 52 L Pulse Rate [orthos tatic lying Right Pulse Oximeter] Pulse Rate [orthos tatic sitting Righ t Pulse Oximeter] Pulse Rate [orthos tatic standing Rig ht Pulse Oximeter] Respiratory Rate 16 Blood Pressure Blood Pressure [Le ft Arm] 141/97 H Blood Pressure [Ri ght Upper Arm] Blood Pressure [or thostatic lying Le ft Arm] Blood Pressure [or thostatic sitting Left Arm] Blood Pressure [or thostatic standing Left Arm] Pulse Oximetry 99 98 Oxygen Delivery Me thod Room Air Room Air 12/15/24 11:24 12/15/24 11:24 Temperature 99.3 F Pulse Rate Pulse Rate [Pulse Oximeter] Pulse Rate [Right Pulse Oximeter] Pulse Rate [Right Radial] 50 L 50 L Pulse Rate [orthos tatic lying Right Pulse Oximeter] Pulse Rate [orthos tatic sitting Righ t Pulse Oximeter] Pulse Rate [orthos tatic standing Rig ht Pulse Oximeter] Respiratory Rate 16 Blood Pressure Blood Pressure [Le ft Arm] 134/82 Blood Pressure [Ri ght Upper Arm] Blood Pressure [or thostatic lying Le ft Arm] Blood Pressure [or thostatic sitting Left Arm] Blood Pressure [or thostatic standing Left Arm] Pulse Oximetry 99 Oxygen Delivery Me thod Room Air DS: Data Data Completed and Pending Labs on day of discharge: Labs from last 24 hours 12/15/24 12/14/24 06:10 17:40 WBC 8.87 RBC 5.11 Hgb 15.6 Hct 44.9 MCV 88 MCH 31 MCHC 35 RDW Coeff of Jennifer 11.9 Plt Count 225 Neut % (Auto) 58.2 Lymph % (Auto) 32.6 [place] % (Auto) 7.2 Eos % (Auto) 0.9 Baso % (Auto) 0.2 Neut # (Auto) 5.16 Lymph # (Auto) 2.89 [place] # (Auto) 0.60 Eos # (Auto) 0.08 Baso # (Auto) 0.02 Abs Immat Gran (auto) 0.08 Imm/Tot Granulo (auto) 0.9 Sodium 137 Potassium 3.6 Chloride 100 Carbon Dioxide 25 Anion Gap 12 BUN 16 Creatinine 1.0 Estimated Creat Clear 96.40 Estimated GFR 101 Glucose 101 Calcium 9.6 Magnesium 2.1 Troponin I < 0.01 Triglycerides 123 Cholesterol 188 LDL Cholesterol, Calc 101 H HDL Cholesterol 62 TSH 3.090 Discharge Plan Discharge Disposition: Home, Self-Care Date of Admission: 12/14/24 20:09 Attending Provider on Discharge: Nunu Tompkins Primary Care Provider: Nallely Arreguin Condition: Improved Anticipated Discharge Date/Time: 12/15/24 13:22 Discharge Medications: New lorazepam [Ativan] 1 mg tablet 1 mg PO QHS PRNQty: 10 0RF Discharge Orders: Discharge Order (Routine); Ordered 12/15/24 Ordered By: Nunu Tompkins Patient Education: Lorazepam (By mouth), Paresthesia (ED) Additional Instructions: [facility] information for f/u scans given to patient. Activity Level: Activity as Tolerated Follow Up Appointments: [facility] [Outside] Referral Note: Thurs PM [place] location Cervical and Thoracic MR w/contrast Nallely Arreguin, RF TEST TECHNICIAN, RETAIL SERVICE LEAD [employer]CH[employer] [Primary Care Provider, Family Practice] Referral Note: Keep your previously scheduled PCP appointment (12/16) Forms: MyHealth Info Instructions
--- NOTE | 2024-12-18 21:24 | P.EN_ITS ---
Chart Event Note Chart Event Note: Patient had an MRI at [facility] in [facility] this evening; received a call from Radiologist that all was reassuring (no evidence of MS). Called David on cell with results; he will see PCP next week for f/u. He has no new or lingering neurological symptoms, no other concerns or questions.
== END 2024-12-15 14:12 | disposition home or self-care (01) ==
LOC: ED 19:20 → MEDSURG 20:10
PROVIDERS: Admitting Provider Internal Medicine; Emergency Provider Student in an Organized Health Care Education/Training Program; PCP Nurse Practitioner Family; Visit Provider Internal Medicine
DX: R53.1 Weakness (principal); R20.0 Anesthesia of skin; F41.9 Anxiety disorder, unspecified; F32.A Depression, unspecified; I10 Essential (primary) hypertension
CPT/HCPCS: 36415; 70450; 70496; 70498; 70551; 80048; 80061; 82947; 83735; 84443; 84484; 85025; 93005; 99284; 99285; A9270; G0378; Q9967

== ENCOUNTER 2024-12-22 11:32 | Outpatient (CLI) | payer BC, SELFPAY ==
--- OUTSIDE RECORDS SUMMARY | 2024-12-23 00:39 | XMS_ITS | Clinical Summary ---
Author Organization [facility] Address [address] [place] [address] Care Team Providers Care Emu Farmer Name Role Phone Blaine Parrish MD Primary Care Provider + Allergies No known active allergies Medications sennosides-docu sate, 8.6-50 mg, (SENOKOT S) 8.6-50 mg tabletIndicatio ns:Lumbar disc disorder with myelopathy Take 1-4 tablets by mouth 2 times daily. 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 on file Not on file Not on omar e Obstetrics History Last Filed Vital Signs Vital Sign Reading Time Taken Comments Blood Pressure 127/72 06/11/2020 12:45 PM MARBLE HELPER Pulse 66 06/11/2020 12:45 PM MARBLE HELPER Temperature 36.2 C (97.2 F) 06/11/2020 12:45 PM MARBLE HELPER Respiratory Rate 16 06/11/2020 12:45 PM MARBLE HELPER Oxygen Saturation 98% 06/11/2020 12:45 PM MARBLE HELPER Inhaled Oxygen Concentration - - Weight 74.6 kg (164 lb 7.4 oz) 06/11/2020 6:15 A M MARBLE HELPER Height 170.2 cm (5' 7) 06/11/2020 6:15 AM MARBLE HELPER Body Mass Index 25.76 06/11/2020 6:15 AM MARBLE HELPER Plan of Treatment Not on file Insurance [facility] Advance Directives * Full Code (Latest Code [...] 12:39 AM 07/22/2016 12:34 PM Care Teams Emu Farmer Relationship Specialty Start Date End Date Blaine Parrish MD [address] [place] [address] PCP - General Family Practice 06/07/20
--- OUTSIDE RECORDS SUMMARY | 2024-12-23 00:39 | XMS_ITS | Clinical Summary ---
Author Organization [facility] Address [address] [place] [address] Care Team Providers Care Checking Clerk Name Role Phone Unavailable Primary Care Provider Unavailabl e Source Comments You are receiving this document as you are listed as the primary care provider,follow-up provider, or the patient has been referred to you for consultation.This is in compliance with the Medicare and[facility] E[facility] Incentive [facility],which states Providers who transition their patient to another setting of careor provider of care or refers their patient to another provider of care shouldprovide summary care record for each transition of care or referral. [employer] Allergies No known active allergies Medications amoxicillin-clav [...] patient's age to complete this topic Insurance [facility] BLUE LINK
== END 2024-12-22 11:33 | disposition home or self-care (01) ==
PROVIDERS: PCP Nurse Practitioner Family; Visit Provider Nurse Practitioner Family
DX: R20.0 Anesthesia of skin (principal); R53.1 Weakness
CPT/HCPCS: 82607; 84207; 86618

== ENCOUNTER 2025-03-22 17:58 | Emergency (ER) | payer BC, SELFPAY ==
--- OUTSIDE RECORDS SUMMARY | 2025-02-09 14:38 | XMS_ITS ---
Author Organization [facility] Address [address] [facility] [address] , [address] [place] [address] Phone Care Team Providers Care Organic Lab Worker Name Role Phone Luz Maria MORELAND, El Unavailable [phone] Conditions or Problems Problem Name Problem Code Onset Date Status Entry Date Provider Comment Standard Description Annotate Leg pain, right 515942375 (SNOMED CT) Active El Loera MD Pain in right lower limb Leg weakness, right 607496922 (SNOMED CT) Active El Loera MD Paresis of lower extremity Arm numbness 937731277 (SNOMED CT) Active El Loera MD Numbness of upper limb right Medications No information available. Medications Administered No information available. Allergies, Adverse Reactions, Alerts No information available. Results No information available. Plan of Care Type Date Detail Appointment 08:00 [place], [address] [facility], [address], [place], [address], Appointment 08:40 [place], [address] [facility], [address], [place], [address], Pending order EMG right upper ext Pending order EMG right upper ext Pending order EMG right lower ext Procedures No information available. Vital Signs No information available. Immunizations No information available. Advance Directives No information available.
--- OUTSIDE RECORDS SUMMARY | 2025-03-22 18:00 | XMS_ITS | Clinical Summary ---
Author Organization [facility] Address [address] [facility] , [address] [place] [address] Phone Care Team Providers Care Mid Level Clinician Name Role Phone [facility] Unavailable Unava ilable Conditions or Problems Problem Name Problem Code Onset Date Status Entry Date Provider Comment Standard Description Annotate Leg pain, right 244344841 (SNOMED CT) Active El Loera MD Pain in right lower limb Leg weakness, right 402301404 (SNOMED CT) Active El Loera MD Paresis of lower extremity Arm numbness 510606051 (SNOMED CT) Active El Loera MD Numbness of upper limb right Medications No information available. Medications Administered No information available. Allergies, Adverse Reactions, Alerts No information available. Results No information available. Plan of Care Type Date Detail Appointment 08:00 [place], [address] [facility], [address] [place], [address], Appointment 08:40 [place], [address] [facility], [address], [place], [address], Pending order EMG right upper ext Pending order EMG right upper ext Pending order EMG right lower ext Procedures No information available. Vital Signs No information available. Immunizations No information available. Advance Directives No information available.
--- OUTSIDE RECORDS SUMMARY | 2025-03-22 18:00 | XMS_ITS | Clinical Summary ---
Author Organization [facility] Address [address] [place] [address] Care Team Providers Care Structural Steel Detailer Name Role Phone Blaine Parrish MD Primary Care Provider + Allergies No known active allergies Medications sennosides-docu sate, 8.6-50 mg, (SENOKOT S) 8.6-50 mg tabletIndicatio ns:Lumbar disc disorder with myelopathy Take 1-4 tablets by mouth 2 times daily. 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 Not on file Not on omar e Obstetrics History Last Filed Vital Signs Vital Sign Reading Time Taken Comments Blood Pressure 127/72 06/11/2020 12:45 PM SHOWROOM SALESPERSON Pulse 66 06/11/2020 12:45 PM SHOWROOM SALESPERSON Temperature 36.2 C (97.2 F) 06/11/2020 12:45 PM SHOWROOM SALESPERSON Respiratory Rate 16 06/11/2020 12:45 PM SHOWROOM SALESPERSON Oxygen Saturation 98% 06/11/2020 12:45 PM SHOWROOM SALESPERSON Inhaled Oxygen Concentration - - Weight 74.6 kg (164 lb 7.4 oz) 06/11/2020 6:15 A M SHOWROOM SALESPERSON Height 170.2 cm (5' 7) 06/11/2020 6:15 AM SHOWROOM SALESPERSON Body Mass Index 25.76 06/11/2020 6:15 AM SHOWROOM SALESPERSON Plan of Treatment Not on file Insurance [...] 12:39 AM 07/22/2016 12:34 PM Care Teams Structural Steel Detailer Relationship Specialty Start Date End Date Blaine Parrish MD [address] [place] [address] PCP - General Family Practice 06/07/20
--- OUTSIDE RECORDS SUMMARY | 2025-03-22 18:00 | XMS_ITS | Clinical Summary ---
Author Organization [facility] Address [address] [place] [address] Care Team Providers Care Almond Huller Name Role Phone Unavailable Primary Care Provider Unavailabl e Source Comments You are receiving this document as you are listed as the primary care provider,follow-up provider, or the patient has been referred to you for consultation.This is in compliance with the Medicare and[facility] Incentive [facility],which states Providers who transition their patient to another setting of careor provider of care or refers their patient to another provider of care shouldprovide summary care record for each transition of care or referral. [employer] Allergies No known active allergies Medications amoxicillin-clav [...] 2 - 2-dos e series) 08/09/2008 02/07/2008 HPV Vaccine (1 - 3-dose SCDM series) 2016 Cholesterol 2024 DTaP/Tdap/Td Vaccine (3 - Tdap) 06/17/2024 06/17/2014, 12/14/2001 COVID-19 Vaccine (1 - 2023-2 5 season) 2025 Influenza Vaccine (#1) 2025 4, 05/15/2007 Zoster/Shingles Vaccine (1 o f 2) 2039 MCV4 Vaccine Completed 02/03/2008 Hib Vaccine Aged Out No longer eligi ble based on patient's age to complete this topic Meningococcal B Vaccine Aged Out No l onger eligible based on patient's age to complete this topic Pneumococcal Vaccine Aged Out No long er eligible based on patient's age to complete this topic Insurance [facility] BLUE LINK
[2025-03-22 18:09] VITALS: BP 155/92; PULSE 78; RESP 16; TEMP 37.4; O2SAT 99; BMI 23.5
--- NOTE | 2025-03-22 19:50 | ED.GENADULT ---
HPI - General Adult General Date Seen: 03/22/25 Chief complaint: Back Injury/Pain Stated complaint: bad low back pain Time Seen by Provider: 03/22/25 19:00 Source: patient Mode of arrival: ambulatory Limitations: no limitations History of Present Illness HPI narrative: Patient is a 35-year-old male presenting to the emergency department for low back pain and bilateral lower extremity numbness. He states he has had symptoms like this twice before in both times needed emergent surgery up at [place]. Has not seen his neurosurgeon since around 2019 or 2020 after his most recent surgery. Had surgery in 2016 and 2019. States over the past few months he has been having issues with lower extremity numbness. Initially was seen here in November for right leg numbness. Was admitted for stroke workup which was negative. Since then the right leg numbness has not gone away but has noticed worsening leg numbness on the left that began today and been gradually getting worse throughout the day. States he is also having increased low back pain. Feels like it is difficult to move around due to the back pain. Does states he urinated while he was in the waiting room and feels like he emptied his bladder all the way. Has not had any urinary incontinence or bowel incontinence. Does state he might have some mild numbness around his groin which feels similar to 2019 when he had his most recent surgery. States in 2016 the numbness was much more profound. Has been able to ambulate around. No other concerns noted at this time. Does states he was tested for Lyme disease back in November and was negative. Denies fevers, chills, chest pain, shortness of breath, abdominal pain, diarrhea, constipation. 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 (12/2019) ?M53.87 - Other specified dorsopathies, lumbosacral region (ICD-10) Elevated lipids ?E78.5 - Hyperlipidemia, unspecified (ICD-10) Migraine headache ?G43.909 - Migraine, unspecified, not intractable, without status migrainosus (ICD-10) Surgical History History of lumbosacral spine surgery (11/2016) ?Z98.890 - Other specified postprocedural states (ICD-10) Family History Other Mental health disorder Social History 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: , 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, 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-smoker, but does chew tobacco Social drinker 3/week Exercises three times per week - biking What is your current living situation?: I presently have a place to live Problems where you live: no known problems Problems where you live details: n/a In the past 12 months, utilities in danger of being shut off: no In past 12 months, lack of transportation kept you from medical appts, meetings, work, or getting things needed for daily living: no In the past 12 mos, have been you worried that your food would run out before you had money to buy more?: never true In the past 12 mos, the food you bought just didn't last and you didn't have money to buy more?: never true Highest level of school completed/degree received: some college, no degree Smoking Status: Never smoker Do you use any of these nicotine containing products: Smokeless Tobacco Nicotine containing products detail: nicotine pouches Second hand tobacco smoke exposure: No How often do you have a drink containing alcohol: never How many standard drinks containing alcohol do you have on a typical day: 1 or 2 How often do you have six or more drinks on one occasion: Never AUDIT-C Alcohol total score: 0 Non-prescribed substance use: denies use Caffeine: Yes How often does anyone, including family, friends and others, physically hurt you: never How often does anyone, including family, friends and others, insult or talk down to you: never How often does anyone, including family, friends and others, threaten you with harm: never How often does anyone, including family, friends and others, scream or curse at you: never service: No Exam Narrative: Exam Narrative: Const: Well-nourished, Well-developed, in mild distress Eyes: PERRL, no conjunctival injection, and symmetrical lids HENT: Atraumatic external nose and ears. Moist mucous membranes. Neck: Symmetric, trachea midline, No thyromegaly. CVS: RRR, No murmurs or gallops. Peripheral pulses 2+ and equal in all extremities RESP: Unlabored respiratory effort. Clear to auscultation bilaterally. GI: Nontender/Nondistended, No rebound or guarding. MSK:Extremities w/o deformity, Normal Active ROM Skin: Warm, Dry. No rashes or lesions. Neuro: Normal Muscle tone, muscle strength 4/5 bilaterally for the hip extension and flexion, knee flexion extension and ankle plantar and dorsiflexion. Does state that some of this it has to do with pain and it is very painful his back whenever he tries to move any of these joints. Reflexes in the patellar and Achilles tendon +2/4. Does note decreased sensation to his scrotum and seems to have a slightly decreased rectal tone. Psych: Awake, Alert, & Oriented x3. Appropriate mood and affect. Const: Vital Signs, click to edit/add: Vital Signs - 24 hr 03/22/25 18:09 Temperature 99.3 F Pulse Rate [Pulse Oximeter] 78 Respiratory Rate 16 Blood Pressure [Ri ght Upper Arm] 155/92 H Pulse Oximetry 99 Oxygen Delivery Me thod Room Air Course Vital Signs Vital signs: Initial Vital Signs Temperature 99.3 F 03/22/25 18:09 Temperature Source Temporal Artery Scan 03/22/25 18:09 Pulse Rate 78 03/22/25 18:09 Respiratory Rate 16 03/22/25 18:09 Blood Pressure 155/92 H 03/22/25 18:09 Blood Pressure Mean 113 H 03/22/25 18:09 Pulse Oximetry 99 03/22/25 18:09 Oxygen Delivery Method Room Air 03/22/25 18:09 Vital Signs Temperature 99.3 F 03/22/25 18:09 Pulse Rate 78 03/22/25 18:09 Respiratory Rate 16 03/22/25 18:09 Blood Pressure 155/92 H 03/22/25 18:09 Pulse Oximetry 99 03/22/25 18:09 Oxygen Delivery Method Room Air 03/22/25 18:09 Temperature 99.3 F 03/22/25 18:09 Pulse Rate 78 03/22/25 18:09 Respiratory Rate 16 03/22/25 18:09 Blood Pressure 155/92 H 03/22/25 18:09 Pulse Oximetry 99 03/22/25 18:09 Oxygen Delivery Method Room Air 03/22/25 18:09 Medical Decision Making MDM Narrative Medical decision making narrative: Patient is a 35-year-old male presenting to emergency department for low back pain and lower extremity numbness. Symptoms could all be related to herniated disc but there are concerns for cauda equina or conus medullaris syndrome. We are unable to get an MRI here in [place] until tomorrow morning. Due to this I did speak to Dr. Beal of [facility] spinal surgery. After he spoke to the patient's previous surgeon is recommend the patient be transferred for emergent MRI. Did recommend given a dose of dexamethasone in the meantime. I would then spoke to the [facility] ED provider, Dr. Paula. She is agreeable to the transfer. Due to our ambulance is being about on-call so it will be an extended amount of time until we can transfer him by ambulance and I do believe he is safe to go by private vehicle. Patient is agreeable to this plan. He did not have an IV in yet so I will give him p.o. dexamethasone. Discharge Plan Discharge Clinical Impression: Lumbar radiculopathy Patient Disposition: Xfer [facility] Condition: Guarded Additional Instructions: Go straight to the [facility] Emergency Department and tell them you were transferred from [place] for an MRI. Prescriptions: No Action No Known Home Medications Stand Alone Forms: [employer] Info Instructions
[2025-03-22] MEDS: DEXAMETHASONE 10 MG/ML PF PO (20:20)
[2025-03-22 20:36] VITALS: BP 148/100; PULSE 61; RESP 18; TEMP 36.8; O2SAT 98
== END 2025-03-22 20:56 | disposition home or self-care (01) ==
PROVIDERS: Emergency Provider Student in an Organized Health Care Education/Training Program; PCP Nurse Practitioner Family
DX: M54.16 Radiculopathy, lumbar region (principal)
CPT/HCPCS: 51798; 99283; 99285; J1100